=== PATIENT | female | born 1955 | race Caucasian/White ===

== ENCOUNTER → 2017-05-23 | Outpatient (CLI) | payer BC ==
[~2017-05-23] MED LIST: BIOT1CAP PO; CALC600T37 PO; CALCTAB5 PO; DEXL60CA4 PO; ETOD400T PO; FISHOIL PO; GABA300C19 PO; GLYC1TAB19 PO; HYDR-4330 PO; LISI-729 PO; META1TAB22 PO; OMEG10007 PO; ROSU5TAB PO
[2017-05-23 16:02] LABS: BLOOD UREA NITROGEN 17 mg/dl (7-18); BUN/CREATININE RATIO 18.1 (10-20); CALCIUM 10.1 mg/dl (8.5-10.1); CARBON DIOXIDE 29 mmol/L (21-32); CHLORIDE 105 mmol/L (98-107); CREATININE 0.95 mg/dl (0.60-1.20); GLUCOSE 90 mg/dl (70-99); POTASSIUM 4.1 mmol/L (3.5-5.1); SODIUM 140 mmol/L (136-145)
== END | disposition home or self-care (01) ==
LOC: C.CPL 11:30
PROVIDERS: ATTEND Orthopaedic Surgery
DX: R20.0 Anesthesia of skin (principal); Z01.810 Encounter for preprocedural cardiovascular examination

== ENCOUNTER → 2017-05-23 | Day surgery (SDC) | payer BC ==
[2017-04-25 14:45] VITALS: Ht 169.5 cm; Wt 90.9 kg
[~2017-05-23] VITALS: Ht 169.5 cm; Wt 90.9 kg
[~2017-05-23] MED LIST changes: +IOPAMIDOL INJ 61% 15 ML VIAL ONE; +LIDOCAINE HCL 1% MPF 5 ML VIAL ONE; +SODIUM CHLORIDE 0.9% INJ 10 ML VIAL ONE
--- NOTE | 2017-05-23 13:23 | History & Physical Bridge - [place] ---
H&P Re-Evaluation Bridge Note: I have examined the patient, reviewed the History & Physical and in the interval since the performance of the History & Physical I have noted the following changes of clinical significance: No changes noted
[2017-05-23 13:56] VITALS: BP 117/80; PULSE 69; TEMP 36.8; O2SAT 96
--- NOTE | 2017-05-23 13:56 | Discharge Instructions ---
Discharge Instructions Date of Service May 23, 2017. Visit Reason for Visit: Lumbar Radiculopathy Discharge Discharge Diagnosis / Problem: left leg pain Discharge Goals Goal(s): Decrease discomfort, Improve function Medications Stopped Medications Name(s): ETODOLAC STOPPED ON SATURDAY Activity Recommendations Activity Limitations: resume your previous activity Anesthesia . Post Anesthesia Instructions: If you have had General Anesthesia or IV Sedation: * Do not drive today. * Resume driving when surgeon permits. * Do not make important decisions or sign legal documents today. * Call surgeon for: 1. Temperature elevations greater than 101 degrees F. 2. Uncontrollable pain. 3. Excessive bleeding. 4. Persistent nausea and vomiting. 5. Medication intolerance (nausea, vomiting or rash). * For nausea and vomiting use only clear liquids such as: tea, soda, bouillon until nausea subsides, then gradually increase diet as tolerated. * If you have any concerns or questions, call your surgeon's office. If physician is unavailable and it is an emergency, call 911 or go to the nearest emergency room. . Diet Recommendations Recommended Home Diet: no limitations Procedures Procedures Performed: Lumbar Epidural Steroid Injection Pending Studies Studies pending at discharge: no Medical Emergencies . Who to Call and When: Medical Emergencies: If at any time you feel your situation is an emergency, please call 911 immediately. . Non-Emergent Contact Non-Emergency issues call your: Specialist . . "Provider Documentation" section prepared by Avery Orellana. .
--- NOTE | 2017-05-23 14:09 | OPERATIVE REPORT ---
DATE OF OPERATION: 05/23/2017 PREOPERATIVE DIAGNOSIS: Left L4-L5 stenosis, multifactorial in cause with a left L5 radiculopathy. POSTOPERATIVE DIAGNOSIS: Same. PROCEDURE: Left paramedian L5-S1 intralaminar epidural steroid injection under fluoroscopic guidance. INDICATIONS: The patient is a 61-year-old white female who has a significant foraminal stenosis at L4-L5, who wants to try conservative care rather than a decompression surgery first. She presents today for an epidural injection to provide her with relief of radicular pain. PHYSICAL EXAMINATION: Pleasant female seated comfortably. She has no tenderness to palpation of her lumbar paraspinal muscles. Sciatic notch sensitivity was absent. Negative seated straight leg raises. Normal motor and sensory examination of her lower extremities. CONSENT: Verbal and written consent was obtained from the patient. Risks and benefits were reviewed. Risks include, but are not limited to an epidural abscess, epidural hematoma, allergic reaction and dural puncture. The patient wishes to proceed. DESCRIPTION OF PROCEDURE: The patient was taken back to the special procedures room of the [facility], where she was maintained in a prone position. Backside was cleansed with Betadine x3 and a dry sterile dressing was applied. Fluoroscope was used to identify the L5-S1 intralaminar space and overlying skin was anesthetized with 4 mL of lidocaine 1% with a 25-gauge 1-1/2 inch needle. A 22-gauge 3-1/2 inch Tuohy needle was then directed down towards the intralaminar space. It was advanced under lateral fluoroscopic guidance. Loss of resistance was noted at a depth of 7 cm. Isovue-300 contrast 1 mL was injected in which demonstrated epidural uptake pattern, which was confirmed with a lateral view. She then underwent injection after negative aspiration of 40 mg of Depo-Medrol and 4 mL of preservative free sodium chloride. Injection was well tolerated and reproduced a familiar transient radicular sensation down the left leg. DISPOSITION: 1. The patient was taken out into the discharge recovery area, where she will be discharged home once discharge criteria have been met. 2. Follow up in the [facility] office in 2-4 weeks. I attest to the content of the Intraoperative Record and any orders documented therein. Any exception s are noted below.
== END | disposition home or self-care (01) ==
LOC: X.SURG 12:06
PROVIDERS: ATTEND Physical Medicine & Rehabilitation
DX: M48.06 Spinal stenosis, lumbar region (principal); Z87.891 Personal history of nicotine dependence

== ENCOUNTER 2017-07-11 06:06 | Inpatient (IN) | payer BC ==
[2017-06-04 14:14] VITALS: BMI 36.0
--- NOTE | 2017-06-04 14:57 | PAT Medication Instructions ---
Service Date Jun 04, 2017. Current Home Medication List Biotin (Ari Biotin), 10 MG PO QAM Calcium (Calcium), 600 MG PO QAM Dexlansoprazole (Dexilant), 60 MG PO QAM Etodolac (Etodolac), 400 MG PO BID Fish Oil ([place]-3), 1 CAP PO BID Gabapentin (Neurontin), 300 MG PO QID Glycopyrrolate (Glycopyrrolate), 1 MG PO BID PRN for SEVERE SWEATING Hydrocodone-Acetaminophen (Lortab 5-325 mg), 1 TAB PO DAILY PRN for Pain Lisinopril (Prinivil), 5 MG PO QAM Metaxalone (Skelaxin), 800 MG PO QID Rosuvastatin Calcium (Crestor), 5 MG PO QPM Medication Instructions For Your Scheduled Surgery - Check with surgeon for instructions: Etodolac (Etodolac), 400 MG PO BID - Hold the following medications 2 weeks prior to surgery: Fish Oil ([place]-3), 1 CAP PO BID - Hold the following medications the morning of surgery: Metaxalone (Skelaxin), 800 MG PO QID Lisinopril (Prinivil), 5 MG PO QAM Glycopyrrolate (Glycopyrrolate), 1 MG PO BID PRN for SEVERE SWEATING Biotin (Ari Biotin), 10 MG PO QAM Calcium (Calcium), 600 MG PO QAM - Take the following medications the morning of surgery with a sip of water: Hydrocodone-Acetaminophen (Lortab 5-325 mg), 1 TAB PO DAILY PRN for Pain (okay to take up to 4 hours prior to surgery if needed) Gabapentin (Neurontin), 300 MG PO QID Dexlansoprazole (Dexilant), 60 MG PO QAM - Take the following medications as scheduled the night before surgery: Rosuvastatin Calcium (Crestor), 5 MG PO QPM Metaxalone (Skelaxin), 800 MG PO QID Hydrocodone-Acetaminophen (Lortab 5-325 mg), 1 TAB PO DAILY PRN for Pain (if needed) Glycopyrrolate (Glycopyrrolate), 1 MG PO BID PRN for SEVERE SWEATING (if needed) Gabapentin (Neurontin), 300 MG PO QID If you have any questions please call us at [phone] or [phone] or [phone]
[2017-06-04 15:21] LABS: BASO % 0.5 %; BASO ABS # 0.04 K/uL (0-0.2); COMPLETE YES; EOS % 1.7 %; HEMATOCRIT 39.9 % (37-47); IG% 0.1 %; LYMPH % 29.8 %; LYMPH ABS # 2.22 K/uL (1.2-3.4); MEAN CELL VOLUME 90.1 fL (80-100); MEAN CORPUSCULAR HGB CONC 33.3 g/dl (32-36); MEAN PLATELET VOLUME 9.7 fL (7.4-10.4); MONO % 6.2 %; NEUT % 61.7 %; PLATELET COUNT 266 K/uL (130-400); RED BLOOD COUNT 4.43 M/uL (4.2-5.4); WHITE BLOOD COUNT 7.46 K/uL (4.8-10.8)
[2017-06-04 15:24] LABS: URINE APPEARANCE CLEAR (CLEAR); URINE BILIRUBIN NEG (NEG); URINE COLOR YELLOW; URINE NITRITE NEG (NEG); URINE SPECIFIC GRAVITY 1.012 (1.000-1.030); UROBILINOGEN NEG (NEG)
[2017-06-04 15:37] LABS: PROTHROMBIN TIME (PATIENT) 10.7 SECONDS (9.0-12.0)
[2017-06-04 15:38] LABS: MANUAL MICROSCOPIC REQUIRED? NO
[2017-06-04 15:41] LABS: REVIEW REQ? NO
--- NOTE | 2017-07-10 19:20 | HISTORY & PHYSICAL EXAMINATION ---
DATE OF ADMISSION: 07/11/2017 CHIEF COMPLAINT: Chronic left knee pain. HISTORY OF PRESENT ILLNESS: This is a 61-year-old female patient of Dr. Shrestha'natalie complaining of chronic left knee pain, longstanding, now progressively getting worse. The patient has been diagnosed with end-stage osteoarthritis per clinical and radiographic exams. She has failed conservative treatment including narcotic medications, anti-inflammatories and intraarticular injections. The patient has also used a sleeve. She has failed conservative treatment and she wishes to proceed with a left total knee arthroplasty. PAST MEDICAL HISTORY: Hypertension, hypercholesterolemia, osteoarthritis, spine problems, sciatica, acid reflux, obesity, kidney stones. SOCIAL HISTORY: Nonsmoker, nondrinker. PAST SURGICAL HISTORY: She had a tonsillectomy, appendectomy, toe surgery on both sides, tubal ligation and an ulnar nerve release. FAMILY HISTORY: Noncontributory. REVIEW OF SYSTEMS: The patient complains of chronic left knee pain, otherwise denies any shortness of breath, chest pain, nausea, vomiting or any other joint complaints. MEDICATIONS: 1. Lisinopril 5 mg daily. 2. Dexilant 60 mg delayed release 1 capsule p.o. every 8 weeks. 3. Neurontin 300 mg 4 times daily. 4. Metaxalone 800 mg 4 times daily. 5. Etodolac 400 mg as needed. 6. Calcium daily. 7. Glycopyrrolate daily. 8. Biotin daily. 9. [place] as needed. ALLERGIES: CODEINE AND MELOXICAM. PHYSICAL EXAMINATION: GENERAL: Well-developed, well-nourished 61-year-old female in no acute distress. She is alert and oriented x3 and pleasant. HEENT: Normocephalic, atraumatic. Extraocular motions are intact. Pupils are equal and reactive to light. HEART: Regular rate and rhythm. No murmurs appreciated. LUNGS: Clear. ABDOMEN: Soft and nontender, bowel sounds are present. EXTREMITIES: Left knee reveals a limited range of motion of 0-130 degrees with crepitation. She has a mild effusion with neutral alignment. She has 4/5 strength. NEUROLOGIC: Neurovascularly, she is intact in her left lower extremity. DIAGNOSES: Left knee end-stage osteoarthritis, hypercholesterolemia, hypertension, osteoarthritis, spine problems in the lumbar area, sciatica, acid reflux, obesity, kidney stones. PLAN: The patient was advised of her diagnosis. Indications, risks, benefits, postop course have all been reviewed. The patient wishes to proceed with left total knee arthroplasty. Necessary consent forms, preoperative testing and clearances will be obtained. DONNA
[2017-07-11] VITALS (7 sets, daily range): BP systolic 106–109; BP diastolic 70–82; PULSE 68–82; TEMP 36.6–36.8; O2SAT 95–98; Ht 170.2 cm; Wt 105.3 kg
[~2017-07-11] VITALS: Ht 170.2 cm; Wt 105.3 kg
[~2017-07-11 06:06] MED LIST changes: -CALCTAB5 PO; -FISHOIL PO; +GABA-1218 PO; -GABA300C19 PO; -IOPAMIDOL INJ 61% 15 ML VIAL ONE; +LACTATED RINGER'S 1000ML 500 ML IV ONE; -LIDOCAINE HCL 1% MPF 5 ML VIAL ONE; +ROPIVACAINE 5MG/ML 30 ML 150 MG, BUPIVACAINE 0.5% MPF INJ 30 ML, EpINEphrine HCL INJ 0.... INFIL SCH; -SODIUM CHLORIDE 0.9% INJ 10 ML VIAL ONE
[2017-07-11] MEDS ORDERED: BUPIVACAINE 0.5 % 5 MG/1 ML PF 10ML VIAL ONE (06:19)
[2017-07-11] MEDS ORDERED: AMT50 PO (06:32)
[2017-07-11] MEDS: DEXAMETHASONE 4 MG TAB PO SCH ×2 (06:55→12:14)
[2017-07-11] MEDS: GABAPENTIN 300 MG CAP PO SCH ×4 (06:55→20:57)
[2017-07-11] MEDS: METOCLOPRAMIDE HCL 10 MG TAB PO SCH ×2 (06:55→12:15)
[2017-07-11] MEDS: FAMOTIDINE 20 MG TAB PO SCH ×2 (06:56→12:14)
[2017-07-11] MEDS: CeleBREX 200 MG CAP PO SCH ×2 (06:56→12:14)
[2017-07-11] MEDS: ACETAMINOPHEN 500 MG TAB PO SCH ×4 (06:56→21:43)
[2017-07-11] MEDS ORDERED: FENTANYL CITRATE INJ 50 MCG/1 ML 2 ML VIAL IV PRN (07:00)
[2017-07-11] MEDS ORDERED: ATROPINE SULFATE 0.1 MG/ML 5ML SYR IV PRN (07:00)
[2017-07-11] MEDS ORDERED: EpHEDrine SULFATE INJ 50 MG/ML AMP IV PRN (07:00)
[2017-07-11] MEDS ORDERED: ONDANSETRON INJ 2 MG/ML 2 ML VIAL IV PRN (07:00)
[2017-07-11] MEDS: LACTATED RINGER'S 1000ML IV SCH ×2 (07:05→12:14)
[2017-07-11] MEDS: LACTATED RINGER'S 1000ML 1,000 ML IV SCH ×2 (07:05→12:14)
[2017-07-11] MEDS ORDERED: MIDAZOLAM HCL 1 MG/ML 2ML VIAL ONE ×2 (07:45→08:24)
[2017-07-11] MEDS: TRANEXAMIC ACID INJ 1,000 MG in SYRINGE 0 ML IV SCH ×2 (08:06→10:34)
[2017-07-11] MEDS ORDERED: ORTHO JOINT ANESTHETIC ONE (08:43)
[2017-07-11] MEDS ORDERED: POVIDONE-IODINE OP SOLN 30 ML BTL ONE (08:43)
[2017-07-11] MEDS ORDERED: BACITRACIN 50000 UNIT VIAL ONE (08:44)
[2017-07-11] MEDS: CEFAZOLIN 2000MG IV PUSH 10 ML IV SCH ×3 (09:13→12:14)
--- NOTE | 2017-07-11 10:48 | [facility] Post Operative Brief Note ---
Immediate Operative Summary Operative Date Jul 11, 2017. Pre-Operative Diagnosis Left knee end-stage osteoarthritis Post-Operative Diagnosis Left knee end-stage osteoarthritis Procedure(s) Performed Left Total Knee Arthroplasty Surgeon Dr. Ronnie Shrestha Dispute Specialist Surgeon(s) Azam Barcenas Estimated Blood Loss 5ml Findings tricompartmental djd oa ,grade 4 in 3 compartment patellofemoral bone loss Specimens Left Knee Bone and Tissue Drains 2 hemovac Anesthesia spinal sedation adductor block and orthomix Complication(s) None Disposition Recovery Room / PACU
[2017-07-11] MEDS ORDERED: ONDANSETRON INJ 2 MG/ML 2 ML VIAL ONE (11:03)
[2017-07-11] MEDS ORDERED: LIDOCAINE HCL 2% 2 ML VIAL (20MG/ML) ONE (11:03)
[2017-07-11] MEDS ORDERED: DEXAMETHASONE SOD INJ 4 MG/ML VIAL ONE (11:03)
[2017-07-11] MEDS ORDERED: PROPOFOL IV EMULSION 10 MG/ML 20 ML VIAL IV ONE (11:03)
[2017-07-11] MEDS ORDERED: METOCLOPRAMIDE HCL INJ 5 MG/ML 2 ML VIAL IV PRN (11:15)
[2017-07-11] MEDS ORDERED: CEFAZOLIN IV 2,000 MG in DEXTROSE 5% 50ML 50 ML IV SCH (11:15)
[2017-07-11] MEDS ORDERED: BISACODYL 10 MG SUPP PR PRN (11:15)
[2017-07-11] MEDS ORDERED: MAGNESIUM HYDROXIDE SUSP 30 ML UDC PO PRN (11:15)
[2017-07-11] MEDS ORDERED: MoRPHine SULFATE 2 MG/ML CARP IV PRN (11:15)
[2017-07-11] MEDS ORDERED: GLYCOPYRROLATE 1 MG TAB PO PRN (11:15)
[2017-07-11] MEDS ORDERED: ZOLPIDEM TARTRATE 5 MG TAB PO PRN (11:15)
[2017-07-11] MEDS ORDERED: SOD PHOSPHATE/SOD BIPHOSPHATE ENEMA 132 ML BTL PR PRN (11:15)
[2017-07-11] MEDS ORDERED: MoRPHine SULFATE 4 MG/ML 1 ML CARP\\VIAL IV PRN (12:00)
--- NOTE | 2017-07-11 12:26 | Anesthesiology Progress Note ---
Anesthesia Post Op Note Date & Time Jul 11, 2017 at 12:26 Vital Signs Pain Intensity: 0 Vital Signs Past 12 Hours Date Time Temp Pulse Resp B/P (MAP) Pulse Ox O2 Delivery O2 Flow Rate FiO2 07/11/17 12:05 69 14 104/65 97 Nasal Cannula 2 07/11/17 11:55 36.3 71 14 102/68 96 Nasal Cannula 2 07/11/17 11:45 75 17 113/63 97 Nasal Cannula 2 07/11/17 11:35 72 15 93/64 97 Nasal Cannula 2 07/11/17 11:25 73 13 113/70 97 Nasal Cannula 2 07/11/17 11:17 36.0 77 18 114/63 95 Nasal Cannula 2 07/11/17 08:50 70 16 126/99 (108) 99 Oxymask 10 07/11/17 08:40 74 16 111/72 (85) 99 Oxymask 10 07/11/17 08:30 71 16 123/73 (90) 100 Oxymask 10 07/11/17 08:20 72 16 111/73 (86) 99 Oxymask 10 07/11/17 06:25 36.8 82 18 108/81 97 Room Air Notes Mental Status: alert / awake / arousable, participated in evaluation Pt Amnestic to Procedure: Yes Nausea / Vomiting: adequately controlled Pain: adequately controlled Airway Patency, RR, SpO2: stable & adequate BP & HR: stable & adequate Hydration State: stable & adequate Neuraxial Anesthesia: was administered, sensory block is resolving Anesthetic Complications: no major complications apparent
--- NOTE | 2017-07-11 12:37 | DIAGNOSTIC IMAGING REPORT ---
L KNEE 1 OR 2 VIEWS ROUTINE CLINICAL HISTORY: AP/LATERAL IN PACU LEFT KNEE pain COMPARISON: None. DISCUSSION: Total left knee prosthetic place in good position. Good contact between prosthetic and underlying bone. Surgical drains in position. Expected soft tissue postoperative change. IMPRESSION: Anatomic alignment status post total left knee arthroplasty The above report was generated using voice recognition software. It may contain grammatical, syntax or spelling errors. Electronically signed by: Azam Alonso M.D. 07/11/2017 12:36 PM Dictated Date/Time: 07/11/2017 12:35 PM
--- NOTE | 2017-07-11 14:13 | History and Physical ---
History & Physical Date & Time of Service: Jul 11, 2017 at 13:38 Chief Complaint: Left Knee Degenerative Joint Disease Primary Care Physician: Lit Bettencourt M.D. History of Present Illness Source: patient, clinic records, hospital records This is a 61yo F with a PMH of HTN, HLD, GERD, lumbar disc degeneration and OA who is POD#0 s/p Left total knee arthroplasty by Dr. Shrestha. Patient with longstanding left knee pain that has progressively gotten worse and has failed conservative treatment measures. Patient is doing well post-operatively. Denies any knee pain. Denies any lightheadedness, headache, chest pain, palpitations, SOB, abdominal pain, nausea, vomiting, calf pain, LE swelling. Family History Hypertension FATHER Social History Smoking Status: Former Smoker Alcohol Use: occasionally Allergies Coded Allergies: Nickel (Verified Allergy, Unknown, ALLERGY TEST WAS POSITIVE, 07/11/17) Codeine (Verified Adverse Reaction, Intermediate, HALLUCINATIONS, 07/11/17) Meloxicam (Verified Adverse Reaction, Unknown, INCREASED BP, 07/11/17) Home Medications Scheduled Amitriptyline Hcl (Elavil), 50 MG PO HS Biotin (Ari Biotin), 10 MG PO QAM Calcium (Calcium), 600 MG PO QAM Dexlansoprazole (Dexilant), 60 MG PO QAM Etodolac (Etodolac), 400 MG PO BID Fish Oil ([place]-3), 1 CAP PO BID Gabapentin (Neurontin), 300 MG PO QID Lisinopril (Prinivil), 5 MG PO QAM Metaxalone (Skelaxin), 800 MG PO QID Rosuvastatin Calcium (Crestor), 5 MG PO QPM Scheduled PRN Glycopyrrolate (Glycopyrrolate), 1 MG PO BID PRN for SEVERE SWEATING Hydrocodone-Acetaminophen (Lortab 5-325 mg), 1 TAB PO DAILY PRN for Pain Review of Systems Ten systems reviewed and negative except as noted in the HPI. Physical Exam Vital Signs Date Time Temp Pulse Resp B/P (MAP) Pulse Ox O2 Delivery O2 Flow Rate FiO2 07/11/17 12:59 36.7 70 16 106/74 (85) 98 Nasal Cannula 2.0 07/11/17 12:30 36.6 71 16 106/82 (90) 96 Nasal Cannula 2.0 07/11/17 12:05 69 14 104/65 97 Nasal Cannula 2 07/11/17 11:55 36.3 71 14 102/68 96 Nasal Cannula 2 07/11/17 11:45 75 17 113/63 97 Nasal Cannula 2 07/11/17 11:35 72 15 93/64 97 Nasal Cannula 2 07/11/17 11:25 73 13 113/70 97 Nasal Cannula 2 07/11/17 11:17 36.0 77 18 114/63 95 Nasal Cannula 2 07/11/17 08:50 70 16 126/99 (108) 99 Oxymask 10 07/11/17 08:40 74 16 111/72 (85) 99 Oxymask 10 07/11/17 08:30 71 16 123/73 (90) 100 Oxymask 10 07/11/17 08:20 72 16 111/73 (86) 99 Oxymask 10 07/11/17 06:25 36.8 82 18 108/81 97 Room Air General Appearance: no apparent distress, + obese Head: normocephalic, atraumatic Eyes: normal inspection, PERRL, sclerae normal (conjunctiva normal ) ENT: hearing grossly normal, pharynx normal Neck: supple, thyroid normal, no JVD, trachea midline Respiratory/Chest: chest non-tender, lungs clear, normal breath sounds, no respiratory distress, no accessory muscle use Cardiovascular: regular rate, rhythm, no edema, no murmur, normal peripheral pulses Abdomen/GI: normal bowel sounds, non tender, soft, no organomegaly Back: normal inspection Extremities/Musculoskelatal: no calf tenderness, no pedal edema, + pertinent finding (L knee with bandage in place. Clean/dry/intact. Ice on top. Drain visualized with sanguinous fluid. SCDs in place.) Neurologic/Psych: no motor/sensory deficits, alert, normal mood/affect, oriented x 3 Skin: normal color, warm/dry, no rash Diagnostics Laboratory Results Item Value Date Time Hemoglobin 13.3 g/dL 06/04/17 1505 White Blood Count 7.46 K/uL 06/04/17 1505 Platelet Count 266 K/uL 06/04/17 1505 Diagnostic Radiology L knee XR: IMPRESSION: Anatomic alignment status post total left knee arthroplasty Impression Assessment and Plan This is a 61yo F with a PMH of HTN, HLD, GERD, lumbar disc degeneration and OA who is POD#0 s/p Left total knee arthroplasty by Dr. Shrestha. S/p L total knee arthroplasty: -POD#[address] Shrestha. -Pt is doing well post-operatively -Fish oil and NSAID held post-operatively for bleeding risk -Per ortho for pain control, wound care, anticoagulation and activities -Monitor H&H, continue incentive spirometry, PT/OT when appropriate HTN: -Normotensive -Continue home dose lisinopril -Monitor Lumbar disc disease: -Continue metaxalone HLD: -Cont Crestor DVT Ppx: Per ortho Code status: FULL PCP: Rut Dispo: Per ortho Patient seen in collaboration with Dr. Lake. Please see addendum. Level of Care Med/Surg Advanced Directives Existing Living Will: Yes Existing Power of Set Illustrator: Yes Resuscitation Status FULL RESUSCITATION VTE Prophylaxis VTE Risk Assessment Done? Y/N: Yes Risk Level: Moderate
--- NOTE | 2017-07-11 14:26 | Medical Consult ---
Consultation Date of Consultation: Jul 11, 2017. Attending Physician: Ronnie Shrestha M.D. Reason for Consultation: Post-op medical management History of Present Illness This is a 61yo F with a PMH of HTN, HLD, GERD, lumbar disc degeneration and OA who is POD#0 s/p Left total knee arthroplasty by Dr. Shrestha. Patient with longstanding left knee pain that has progressively gotten worse and has failed conservative treatment measures. Patient is doing well post-operatively. Denies any knee pain. Denies any lightheadedness, headache, chest pain, palpitations, SOB, abdominal pain, nausea, vomiting, calf pain, LE swelling. Past Medical/Surgical History Medical Problems: (1) GERD (gastroesophageal reflux disease) Status: Chronic (2) HLD (hyperlipidemia) Status: Chronic (3) HTN (hypertension) Status: Chronic (4) Left knee DJD Status: Chronic (5) Lumbar degenerative disc disease Status: Chronic Family History Hypertension FATHER Social History Smoking Status: Former Smoker Alcohol Use: occasionally Allergies Coded Allergies: Nickel (Verified Allergy, Unknown, ALLERGY TEST WAS POSITIVE, 07/11/17) Codeine (Verified Adverse Reaction, Intermediate, HALLUCINATIONS, 07/11/17) Meloxicam (Verified Adverse Reaction, Unknown, INCREASED BP, 07/11/17) Home Medications Home Meds and Scripts Medications Dose Route/Sig Max Daily Dose Days Date Category Dose Instructions Elavil (Amitriptyline HCl) 50 Mg Tab 50 Mg PO HS 07/11/17 Reported Calcium 600 Mg Tab 600 Mg PO QAM 06/04/17 Reported [place]-3 (Fish Oil) 1 Ea Cap 1 Cap PO BID 06/04/17 Reported Ari Biotin (Biotin) 10 Mg Cap 10 Mg PO QAM 04/25/17 Reported Glycopyrrolate 1 Mg Tab 1 Mg PO BID PRN 04/25/17 Reported Lortab 5-325 mg (Hydrocodone-Acetaminophen) 1 Tab Tab 1 Tab PO DAILY PRN 04/25/17 Reported Etodolac 400 Mg Tab 400 Mg PO BID 04/25/17 Reported Skelaxin (Metaxalone) 800 Mg Tab 800 Mg PO QID 04/25/17 Reported Prinivil (Lisinopril) 5 Mg Tab 5 Mg PO QAM 04/25/17 Reported Dexilant (Dexlansoprazole) 60 Mg Cap 60 Mg PO QAM 04/25/17 Reported Crestor (Rosuvastatin Calcium) 5 Mg Tab 5 Mg PO QPM 10/12/12 Reported Neurontin (Gabapentin) 300 Mg Cap 300 Mg PO QID 10/12/[address] OF 400MG TID --- UNTIL CURRENT PRESCRIPTION RUNS OUT Current Inpatient Medications Current Inpatient Medications Medications (Trade) Dose Ordered Sig/Aaron Route Start Time Stop Time Status Last Admin Dose Admin Lactated Ringer's 1,000 ml @ 60 mls/hr [id number] IV 07/11/17 06:00 07/11/17 22:39 Cefazolin Sodium 10 ml @ 2.5 mls/min PREOP IV 07/11/17 06:00 07/11/17 18:00 07/11/17 09:40 2.5 MLS/MIN Acetaminophen (Tylenol Tab) 1,000 mg PREOP PO 07/11/17 06:00 07/11/17 18:00 07/11/17 06:56 1,000 MG Celecoxib (CeleBREX CAP) 200 mg PREOP PO 07/11/17 06:00 07/11/17 18:00 07/11/17 06:56 200 MG Dexamethasone (Decadron Tab) 8 mg PREOP PO 07/11/17 06:00 07/11/17 18:00 07/11/17 06:55 8 MG Famotidine (Pepcid Tab) 20 mg PREOP PO 07/11/17 06:00 07/11/17 18:00 07/11/17 06:56 20 MG Gabapentin (Neurontin Cap) 600 mg PREOP PO 07/11/17 06:00 07/11/17 18:00 07/11/17 06:55 600 MG Metoclopramide HCl (Reglan Tab) 10 mg PREOP PO 07/11/17 06:00 07/11/17 18:00 07/11/17 06:55 10 MG Lactated Ringer's 1,000 ml @ 15 mls/hr Q24H IV 07/11/17 06:00 07/12/17 05:59 07/11/17 07:05 15 MLS/HR Amitriptyline HCl (Elavil Tab) 50 mg HS PO 07/11/17 21:00 08/10/17 20:59 Gabapentin (Neurontin Cap) 300 mg QID PO 07/11/17 17:00 08/10/17 16:59 Glycopyrrolate (Robinul Tab) 1 mg BID PRN PO 07/11/17 11:15 08/10/17 11:14 Lisinopril (Zestril Tab) 5 mg QAM PO 07/12/17 09:00 08/11/17 08:59 Metaxalone (Skelaxin Tab) 800 mg QID PO 07/11/17 17:00 08/10/17 16:59 Rosuvastatin Calcium (Crestor Tab) 5 mg QPM PO 07/11/17 21:00 08/10/17 20:59 Calcium/Vitamin D (Caltrate Plus Tab) 1 tab QAM PO 07/12/17 09:00 08/11/17 08:59 Potassium Chloride/Dextrose/ Sod Cl 1,000 ml @ 100 mls/hr Q10H IV 07/11/17 13:45 07/12/17 13:44 Oxycodone HCl (Roxicodone Immediate Rel Tab) 1 TABLET FOR PAIN RATING... Q4H PRN PO 07/11/17 11:15 07/25/17 11:14 Morphine Sulfate (MoRPHine SULFATE INJ) 2 mg Q2H PRN IV 07/11/17 11:15 07/25/17 11:14 Acetaminophen (Tylenol Tab) 1,000 mg Q8 PO 07/11/17 14:00 08/10/17 13:59 Magnesium Hydroxide (Milk Of Magnesia Susp) 30 ml Q6H PRN PO 07/11/17 11:15 08/10/17 11:14 Bisacodyl (Dulcolax Supp) 10 mg DAILY PRN RI 07/11/17 11:15 08/10/17 11:14 Sodium Biphosphate/ Sodium Phosphate (Fleet Enema) 132 ml DAILY PRN RI 07/11/17 11:15 08/10/17 11:14 Docusate Sodium (coLACE CAP) 100 mg BID PO 07/11/17 21:00 08/10/17 20:59 Diphenhydramine HCl (Benadryl Cap) 25 mg Q8H PRN PO 07/11/17 11:15 08/10/17 11:14 Zolpidem Tartrate (Ambien Tab) 5 mg HSZ PRN PO 07/11/17 11:15 08/10/17 11:14 Multivitamins (Multivitamin Tab) 1 tab QAM PO 07/12/17 09:00 08/11/17 08:59 Metoclopramide HCl (Reglan Inj) 10 mg Q6H PRN IV 07/11/17 11:15 08/10/17 11:14 Pantoprazole Sodium (Protonix Tab) 40 mg QAM PO 07/12/17 09:00 08/11/17 08:59 Tramadol HCl (Ultram Tab) 1 tablet for pain rating... Q4H PRN PO 07/11/17 11:15 08/10/17 11:14 Aspirin (Ecotrin Tab) 81 mg BID PO 07/11/17 21:00 08/10/17 20:59 Morphine Sulfate (MoRPHine SULFATE INJ) 4 mg Q2H PRN IV 07/11/17 12:00 07/25/17 11:59 Cefazolin Sodium 2000 mg/Syringe 10 ml @ 2.5 mls/min Q8H IV 07/11/17 18:00 07/12/17 02:03 Review of Systems Ten systems reviewed and negative except as noted in the HPI. Physical Exam Date Time Temp Pulse Resp B/P (MAP) Pulse Ox O2 Delivery O2 Flow Rate FiO2 07/11/17 13:40 74 16 109/75 (86) 98 Nasal Cannula 2.0 07/11/17 12:59 36.7 70 16 106/74 (85) 98 Nasal Cannula 2.0 07/11/17 12:30 36.6 71 16 106/82 (90) 96 Nasal Cannula 2.0 07/11/17 12:30 Room Air 2.0 07/11/17 12:05 69 14 104/65 97 Nasal Cannula 2 07/11/17 11:55 36.3 71 14 102/68 96 Nasal Cannula 2 07/11/17 11:45 75 17 113/63 97 Nasal Cannula 2 07/11/17 11:35 72 15 93/64 97 Nasal Cannula 2 07/11/17 11:25 73 13 113/70 97 Nasal Cannula 2 07/11/17 11:17 36.0 77 18 114/63 95 Nasal Cannula 2 07/11/17 08:50 70 16 126/99 (108) 99 Oxymask 10 07/11/17 08:40 74 16 111/72 (85) 99 Oxymask 10 07/11/17 08:30 71 16 123/73 (90) 100 Oxymask 10 07/11/17 08:20 72 16 111/73 (86) 99 Oxymask 10 07/11/17 06:25 36.8 82 18 108/81 97 Room Air General Appearance: no apparent distress, + obese Head: normocephalic, atraumatic Eyes: normal inspection, PERRL, sclerae normal (conjunctiva normal ) ENT: hearing grossly normal, pharynx normal Neck: supple, thyroid normal, no JVD, trachea midline Respiratory/Chest: chest non-tender, lungs clear, normal breath sounds, no respiratory distress, no accessory muscle use Cardiovascular: regular rate, rhythm, no edema, no murmur, normal peripheral pulses Abdomen/GI: normal bowel sounds, non tender, soft, no organomegaly Back: normal inspection Extremities/Musculoskelatal: no calf tenderness, no pedal edema, + pertinent finding (L knee with bandage in place. Clean/dry/intact. Ice on top. Drain visualized with sanguinous fluid. SCDs in place.) Neurologic/Psych: no motor/sensory deficits, alert, normal mood/affect, oriented x 3 Skin: normal color, warm/dry, no rash Laboratory Results Pre-op labs: Item Value Date Time Hemoglobin 13.3 g/dL 06/04/17 1505 White Blood Count 7.46 K/uL 06/04/17 1505 Platelet Count 266 K/uL 06/04/17 1505 Assessment & Plan This is a 61yo F with a PMH of HTN, HLD, GERD, lumbar disc degeneration and OA who is POD#0 s/p Left total knee arthroplasty by Dr. Shrestha. S/p L total knee arthroplasty: -POD#[address] Shrestha. -Pt is doing well post-operatively -Fish oil and NSAID held post-operatively for bleeding risk -Per ortho for pain control, wound care, anticoagulation and activities -Monitor H&H, continue incentive spirometry, PT/OT when appropriate HTN: -Normotensive -Continue home dose lisinopril -Monitor Lumbar disc disease: -Continue metaxalone HLD: -Cont Crestor DVT Ppx: Per ortho Code status: FULL PCP: Rut Dispo: Per ortho Patient seen in collaboration with Dr. Lake. Please see addendum. ADDENDUM: Saw/examined the patient in room 318 Doing well, no problems/issues to note L knee was operated on earlier today, but no pain as of yet Ate lunch with no n/v/d - good appetite, no BM as of yet Plan: continue home blood pressure medications check labs in AM ASA 81mg BID for DVT ppx as per ortho
[2017-07-11] MEDS: D5W AND 1/2NSS + 20MEQ KCL 1,000 ML IV SCH (15:48)
[2017-07-11] MEDS: OXYCODONE HCL IR 5 MG TAB (IMMEDIATE RELEASE) PO PRN ×2 (17:17→20:55)
[2017-07-11] MEDS: METAXALONE 800 MG TAB PO SCH ×2 (17:18→20:57)
[2017-07-11] MEDS: CEFAZOLIN IV 2,000 MG in SYRINGE 0 ML IV SCH (18:45)
[2017-07-11] MEDS: ASPIRIN 81 MG ECTAB PO SCH (20:54)
[2017-07-11] MEDS: DOCUSATE SODIUM 100 MG CAP PO SCH (20:54)
[2017-07-11] MEDS: ROSUVASTATIN CALCIUM 10 MG TAB PO SCH (20:55)
[2017-07-11] MEDS: AMITRIPTYLINE HCL 50 MG TAB PO SCH (20:55)
--- NOTE | 2017-07-11 21:17 | OPERATIVE REPORT ---
DATE OF OPERATION: 07/11/2017 INDICATION FOR PROCEDURE: The patient is a 61-year-old female with chronic bilateral knee pain. She has stage bilateral knee osteoarthritis, presents for treatment of her left knee. Regards to her left knee, she has [id number] patellofemoral joint. She has a lateral-aligned patella. She also has medial compartment OA, tricompartmental osteophytes, close to but not bone on bone to medial compartment. PREOPERATIVE DIAGNOSIS: End-stage osteoarthritis, left knee. POSTOPERATIVE DIAGNOSIS: Same. PROCEDURE: Left total knee arthroplasty. SURGEON: Dr. Shrestha. EXECUTIVE VICE PRESIDENT BUSINESS DEVELOPMENT: OSMIN Win. ANESTHESIA: Spinal, adductor nerve block and Orthomix. OPERATIVE PROCEDURE: The patient was taken to the operating room, anesthetized under Anesthesia as dictated. Pneumatic tourniquet was placed about her obese upper thigh. Her left lower extremity was prepped and draped with ChloraPrep in sterile fashion. Exam demonstrated that she had about a 10 degree flexion contracture, but she had good flexion to 130 degrees. She did not have any instability medially or laterally with varus/valgus stress. She had significant crepitation in the patellofemoral joint, mainly with lateral tilt to the patella. The left leg was sterilely prepped and draped with ChloraPrep. The leg was elevated, exsanguinated with Esmarch bandage. Pneumatic tourniquet was raised to 350 mmHg because of her obesity. Anterior incision made across the left knee. Skin incised sharply. Subcutaneous flaps were elevated. Incision was made through medial retinaculum extended up in the mid third of the quadriceps tendon and extended down to the medial tibial tubercle. Intraarticular findings demonstrated she actually had tricompartmental DJD. She had bridging bone wear on the lateral side of the patella with some bone loss of the lateral patella and more lateral-aligned patella with exposed bone on the trochlear groove in the lateral femoral condyle and trochlear groove. She also had areas of grade 4 wear on the medial femoral condyle and lateral femoral condyle but not [id number] in that area of the knee. She had tricompartmental osteophytes. I used the [employer] Journey 2.0, total knee arthroplasty system using [employer] MRI templating. She was templated for a 4 femur, 3 tibia. To expose the knee, the infrapatellar fat pad was resected then the meniscal remnants, cruciate ligaments were resected. The fat pad over the anterior femur for placement of the component in that area was resected and lateral synovial bands were released. The femur was exposed with retractors. The custom femoral cutting block was inserted, pinned in position and distal femoral cut was made. Then the 5-in-1 cutting block was placed for a size 4 femur. The anterior, posterior and chamfer cuts were made and then the knee was extended and a subperiosteal peel lateral release was performed around the patella and the patella width was measured and width was reproduced using a freehand cut technique and a 32 mm patellar component. Three drill holes were made for the component and the excess lateral facet was bevelled off to prevent any impingement. The tibia was then subluxed. The custom tibial cutting block was pinned in position and the proximal tibial cut was made. I used the lamina bridge gang worker and assessed ligamentous balance, ligaments were balanced in extension and flexion without any releases. The tibia was re-exposed and the trial 3 was externally rotated in line with the tibial tubercle, pinned in position, the punch for the stem was used. Then, the 4 femoral trial was inserted, centered, the notch cutting devices were used. A collet was placed and 12 poly high flex insert posterior stabilized trial was placed. This gave balanced ligaments through full range of motion and the patellar tracking was central. The trials removed, and the Orthomix was injected per protocol. The knee was copiously irrigated with pulsatile lavage antibiotic solution and bacitracin. Final components were cemented with Simplex G cement. Final components were the 4 Oxinium [employer] Journey 2.0 Oxinium posterior stabilized left femoral component, a 3 tibial baseplate. The 12 mm high flex poly insert posterior stabilized and a 32 mm patella. All cement cured, we used Betadine soak per protocol and once the cement cured, the knee was copiously irrigated with antibiotic solution with bacitracin, 2 drains were brought out laterally. The quadriceps tendon and medial retinaculum were closed with interrupted [id number] #1 Vicryl sutures. Subcutaneous tissues were closed with interrupted 2-0 Vicryl sutures. Skin was closed with a Ziploc technique and a protective dressing. Tourniquet was let down and the patient tolerated the procedure well. OSMIN Win was my dental hygiene administrative assistant and he functioned as dental hygiene administrative assistant through the entire procedure. He assisted in soft tissue retraction, instrument management and performed the fascial, subcutaneous and skin closure and will participate in postop care of the patient. I attest to the content of the Intraoperative Record and any orders documented therein. Any exception s are noted below.
[2017-07-12] MEDS: D5W AND 1/2NSS + 20MEQ KCL 1,000 ML IV SCH ×2 (00:29→09:22)
[2017-07-12] MEDS: TRAMADOL HCL 50 MG TAB PO PRN (00:31)
[2017-07-12] MEDS: CEFAZOLIN IV 2,000 MG in SYRINGE 0 ML IV SCH (02:07)
[2017-07-12 03:38] VITALS: BP 108/70; PULSE 71; TEMP 36.4; O2SAT 97
[2017-07-12] MEDS: ACETAMINOPHEN 500 MG TAB PO SCH ×3 (05:36→21:45)
[2017-07-12 06:25] LABS: HEMATOCRIT 32.3 % (37-47); MEAN CELL VOLUME 90.5 fL (80-100); MEAN CORPUSCULAR HGB CONC 33.1 g/dl (32-36); MEAN PLATELET VOLUME 9.7 fL (7.4-10.4); PLATELET COUNT 238 K/uL (130-400); RED BLOOD COUNT 3.57 M/uL (4.2-5.4)
[2017-07-12 06:58] LABS: BUN/CREATININE RATIO 15.4 (10-20); CALCIUM 8.7 mg/dl (8.5-10.1); CREATININE 1.03 mg/dl (0.60-1.20)
[2017-07-12 07:33] VITALS: BP 115/78; PULSE 71; TEMP 36.4; O2SAT 98
--- NOTE | 2017-07-12 07:37 | Anesthesiology Progress Note ---
Anesthesia Post Op Note Date & Time Jul 12, 2017 at 07:37 Vital Signs Pain Intensity: 4.0 Vital Signs Past 12 Hours Date Time Temp Pulse Resp B/P (MAP) Pulse Ox O2 Delivery O2 Flow Rate FiO2 07/12/17 07:33 36.4 71 19 115/78 (90) 98 Room Air 07/12/17 03:38 36.4 71 16 108/70 (83) 97 Room Air 07/12/17 00:25 Room Air 07/11/17 23:07 36.8 68 18 109/70 (83) 95 Room Air Notes Mental Status: alert / awake / arousable, participated in evaluation Pt Amnestic to Procedure: Yes Nausea / Vomiting: adequately controlled Pain: adequately controlled Airway Patency, RR, SpO2: stable & adequate BP & HR: stable & adequate Hydration State: stable & adequate Anesthetic Complications: no major complications apparent
[2017-07-12] MEDS ORDERED: ALUMINUM/MAGNESIUM/SIMETH (MAALOX MAX) 30 ML UDC PO ONE (07:45)
[2017-07-12 08:14] VITALS: O2SAT 98
[2017-07-12] MEDS ORDERED: NON-FORMULARY MEDICATION (Dexlansoprazole (Dexilant) 60 MG) PO SCH (09:00)
[2017-07-12] MEDS ORDERED: PANTOprazole SOD 40 MG TAB PO SCH (09:00)
[2017-07-12] MEDS ORDERED: BIOTIN 10 MG PO SCH (09:00)
--- NOTE | 2017-07-12 09:01 | Orthopedic Progress Note ---
Orthopedic Progress Note Date of Service Jul 12, 2017. Subjective Post OP Day: 1 Reports: feeling well, pain controlled w PO medications, Denies: SOB, nausea / vomiting, light headedness, calf pain Additional Notes: PER NURSING, PATIENT HAD AN EPISODE OF CHEST DISCOMFORT THAT RADIATED TOWARDS HER NECK THIS AM, MEDICINE NOTIFIED, EKG ORDERED PATIENT TAKES A REFLUX MED AT HOME THAT IS NOT ON FORMULARY HERE AT HOSPITAL, GETTING PROTONIX WHICH PATIENT STATES HAS NOT WORKED WELL FOR HER REFLUX IN THE PAST. Objective calves soft nontender, N/V intact, capillary refill less than 2 sec., dressing C /D/I, A&O x3, toes mobile Date Time Temp Pulse Resp B/P (MAP) Pulse Ox O2 Delivery O2 Flow Rate FiO2 07/12/17 08:14 Nasal Cannula 98.0 07/12/17 07:33 36.4 71 19 115/78 (90) 98 Room Air 07/12/17 03:38 36.4 71 16 108/70 (83) 97 Room Air 07/12/17 00:25 Room Air 07/11/17 23:07 36.8 68 18 109/70 (83) 95 Room Air 07/11/17 16:16 96 Room Air 07/11/17 15:35 Room Air 07/11/17 15:30 36.6 73 16 107/72 (84) 96 Nasal Cannula 2.0 07/11/17 13:40 74 16 109/75 (86) 98 Nasal Cannula 2.0 07/11/17 12:59 36.7 70 16 106/74 (85) 98 Nasal Cannula 2.0 07/11/17 12:30 36.6 71 16 106/82 (90) 96 Nasal Cannula 2.0 07/11/17 12:30 Room Air 2.0 07/11/17 12:05 69 14 104/65 97 Nasal Cannula 2 07/11/17 11:55 36.3 71 14 102/68 96 Nasal Cannula 2 07/11/17 11:45 75 17 113/63 97 Nasal Cannula 2 07/11/17 11:35 72 15 93/64 97 Nasal Cannula 2 07/11/17 11:25 73 13 113/70 97 Nasal Cannula 2 07/11/17 11:17 36.0 77 18 114/63 95 Nasal Cannula 2 Laboratory Results 24 Hours: Test 07/12/17 06:04 Hematocrit 32.3 % Hemoglobin 10.7 g/dL Assessment & Plan Assessment: POD#1, LEFT TKA Plan: PT/ OT DVT PROPH- ASA D/C PLANNING- [facility] IF ACCEPTED PER MEDICINE- WILL WORK UP CHEST PAIN/ POSS REFLUX, EKG NORMAL. PATIENT WILL GET HER HOME REFLUX MEDICATION TO TAKE HERE AT HOSPITAL Inhouse Planning Pain Management: Ultram, Morphine, PO Tylenol, Oxy IR DVT Prophylaxis: TEDs, SCDs, ASA Discharge Planning Discharge Planning: uncertain Pain Management: PO Tylenol, Oxy IR DVT Prophylaxis: TEDs, ASA Therapy: Physical Therapy, Occupational Therapy
[2017-07-12] MEDS: DOCUSATE SODIUM 100 MG CAP PO SCH ×2 (09:19→20:40)
[2017-07-12] MEDS: MULTIVITAMIN TAB PO SCH (09:20)
[2017-07-12] MEDS: LISINOPRIL 5 MG TAB PO SCH (09:20)
[2017-07-12] MEDS: CALCIUM 600MG + VIT D 400 IU TAB PO SCH (09:20)
[2017-07-12] MEDS: GABAPENTIN 300 MG CAP PO SCH ×4 (09:20→20:40)
[2017-07-12] MEDS: METAXALONE 800 MG TAB PO SCH ×4 (09:21→20:40)
[2017-07-12] MEDS: ASPIRIN 81 MG ECTAB PO SCH ×2 (09:21→20:40)
[2017-07-12] MEDS: OXYCODONE HCL IR 5 MG TAB (IMMEDIATE RELEASE) PO PRN ×4 (09:28→22:06)
[2017-07-12 11:44] VITALS: BP 114/76; PULSE 70; TEMP 36.6; O2SAT 96
[2017-07-12 15:19] VITALS: BP 105/68; PULSE 84; TEMP 36.7; O2SAT 97
--- NOTE | 2017-07-12 18:56 | Progress Note ---
Internal Med Progress Note Date of Service: Jul 12, 2017. Provider Documentation: SUBJECTIVE: resting comfortably afebrile no nausea ambulated fine had some chest pain early in the morning for few moments and gone away and patient attributes it to GERD OBJECTIVE: Vital Signs-as noted below Exam: General-alert and oriented. Not in distress ENT-normal hearing Neck-no neck masses Lungs- cta b/l no wheezing or crackles Heart-s1 and s2 heard regular rate and rhythm no murmurs Extremities-s/p LEFT TKA Neuro-alert and oriented moves extremities Lab data as noted below. ASSESSMENT & PLAN: This is a 61yo F with a PMH of HTN, HLD, GERD, lumbar disc degeneration and OA who is POD#0 s/p Left total knee arthroplasty by Dr. Shrestha. S/p L total knee arthroplasty: POD#[address] Shrestha. post op management as per ortho HTN: on home lisinopril will monitor Lumbar disc disease: on metaxalone HLD: on Crestor GERD ppi chest pain one episode mostly gerd ekg unremarkable no more episodes and patient doing fine DVT Ppx: Per ortho DISPOSITION as per ortho Vital Signs: Date Time Temp Pulse Resp B/P (MAP) Pulse Ox O2 Delivery O2 Flow Rate FiO2 07/12/17 15:35 Room Air 07/12/17 15:19 36.7 84 16 105/68 (80) 97 Room Air 07/12/17 11:44 36.6 70 18 114/76 (89) 96 Room Air 07/12/17 08:14 98 Nasal Cannula 2.0 07/12/17 07:33 36.4 71 19 115/78 (90) 98 Room Air 07/12/17 07:29 Room Air 07/12/17 03:38 36.4 71 16 108/70 (83) 97 Room Air 07/12/17 00:25 Room Air 07/11/17 23:07 36.8 68 18 109/70 (83) 95 Room Air Lab Results: Results Past 24 Hours Test 07/12/17 06:04 Range/Units White Blood Count 13.60 4.8-10.8 K/uL Red Blood Count 3.57 4.2-5.4 M/uL Hemoglobin 10.7 12.0-16.0 g/dL Hematocrit 32.3 37-47 % Mean Corpuscular Volume 90.5 80-100 fL Mean Corpuscular Hemoglobin 30.0 25-34 pg Mean Corpuscular Hemoglobin Concent 33.1 32-36 g/dl RDW Standard Deviation 45.1 36.4-46.3 fL RDW Coefficient of Variation 13.4 11.5-14.5 % Platelet Count 238 130-400 K/uL Mean Platelet Volume 9.7 7.4-10.4 fL Sodium Level 142 136-145 mmol/L Potassium Level 4.0 3.5-5.1 mmol/L Chloride Level 109 98-107 mmol/L Carbon Dioxide Level 26 21-32 mmol/L Anion Gap 7.0 3-11 mmol/L Blood Urea Nitrogen 16 7-18 mg/dl Creatinine 1.03 0.60-1.20 mg/dl Est Creatinine Clear Calc Drug Dose 69.8 ml/min Estimated GFR () 67.0 Estimated GFR (Non- 57.8 BUN/Creatinine Ratio 15.4 10-20 Random Glucose 124 70-99 mg/dl Calcium Level 8.7 8.5-10.1 mg/dl
[2017-07-12] MEDS: AMITRIPTYLINE HCL 50 MG TAB PO SCH (20:40)
[2017-07-12] MEDS: ROSUVASTATIN CALCIUM 10 MG TAB PO SCH (20:40)
[2017-07-12 22:55] VITALS: BP 97/58; PULSE 78; TEMP 36.7; O2SAT 96
[2017-07-12] MEDS: DEXLANSOPRAZOLE 60 MG CAPDR PO SCH (23:04)
[2017-07-13] VITALS (8 sets, daily range): BP systolic 89–123; BP diastolic 60–80; PULSE 57–79; TEMP 36.6–37.1; O2SAT 99–100
[2017-07-13] MEDS: TRAMADOL HCL 50 MG TAB PO PRN ×2 (01:07→14:10)
[2017-07-13] MEDS: ACETAMINOPHEN 500 MG TAB PO SCH ×3 (05:49→21:56)
[2017-07-13 06:18] LABS: HEMATOCRIT 31.3 % (37-47); MEAN CELL VOLUME 91.5 fL (80-100); MEAN CORPUSCULAR HEMOGLOBIN 29.5 pg (25-34); MEAN CORPUSCULAR HGB CONC 32.3 g/dl (32-36); MEAN PLATELET VOLUME 9.6 fL (7.4-10.4); PLATELET COUNT 207 K/uL (130-400); RED BLOOD COUNT 3.42 M/uL (4.2-5.4); WHITE BLOOD COUNT 9.71 K/uL (4.8-10.8)
[2017-07-13 06:49] LABS: CALCIUM 8.5 mg/dl (8.5-10.1); CREATININE 0.96 mg/dl (0.60-1.20)
[2017-07-13] MEDS: OXYCODONE HCL IR 5 MG TAB (IMMEDIATE RELEASE) PO PRN ×4 (07:42→21:15)
[2017-07-13] MEDS: DOCUSATE SODIUM 100 MG CAP PO SCH ×2 (08:38→21:14)
[2017-07-13] MEDS: METAXALONE 800 MG TAB PO SCH ×4 (08:38→21:15)
[2017-07-13] MEDS: ASPIRIN 81 MG ECTAB PO SCH ×2 (08:39→21:15)
[2017-07-13] MEDS: DEXLANSOPRAZOLE 60 MG CAPDR PO SCH (08:39)
[2017-07-13] MEDS: CALCIUM 600MG + VIT D 400 IU TAB PO SCH (08:40)
[2017-07-13] MEDS: MULTIVITAMIN TAB PO SCH (08:40)
[2017-07-13] MEDS: GABAPENTIN 300 MG CAP PO SCH ×4 (08:40→21:15)
[2017-07-13] MEDS: LISINOPRIL 5 MG TAB PO SCH (08:41)
--- NOTE | 2017-07-13 09:22 | Orthopedic Progress Note ---
Orthopedic Progress Note Date of Service Jul 13, 2017. Subjective Post OP Day: 2 Reports: feeling well, pain controlled w PO medications (Painful left knee this AM but improved with pain meds.), Denies: complaints, chest pain, SOB, nausea / vomiting, light headedness, calf pain Objective calves soft nontender, N/V intact, capillary refill less than 2 sec., dressing C /D/I, A&O x3, toes mobile Date Time Temp Pulse Resp B/P (MAP) Pulse Ox O2 Delivery O2 Flow Rate FiO2 07/13/17 07:20 36.6 75 16 120/80 (93) 99 Room Air 07/13/17 06:11 61 104/70 (81) 100 Nasal Cannula 2.0 07/13/17 05:55 123/79 (94) 07/13/17 05:40 57 20 89/60 (70) 99 Nasal Cannula 4.0 07/13/17 01:00 Room Air 07/12/17 22:55 36.7 78 16 97/58 (71) 96 Room Air 07/12/17 15:35 Room Air 07/12/17 15:19 36.7 84 16 105/68 (80) 97 Room Air 07/12/17 11:44 36.6 70 18 114/76 (89) 96 Room Air Laboratory Results 24 Hours: Test 07/13/17 05:56 Hematocrit 31.3 % Hemoglobin 10.1 g/dL Assessment & Plan Assessment: POD#2, LEFT TKA Plan: PT/ OT DVT PROPH- ASA D/C PLANNING- [facility] IF ACCEPTED. Will be Saturday (07.15.17) at the earliest. Patient lives alone and has concerns of going home by herself. PER MEDICINE- WILL WORK UP CHEST PAIN/ POSS REFLUX, EKG NORMAL. PATIENT WILL GET HER HOME REFLUX MEDICATION TO TAKE HERE AT HOSPITAL Inhouse Planning Pain Management: Ultram, Morphine, PO Tylenol, Oxy IR DVT Prophylaxis: TEDs, SCDs, ASA Discharge Planning Discharge Planning: uncertain Pain Management: PO Tylenol, Oxy IR DVT Prophylaxis: TEDs, ASA Therapy: Physical Therapy, Occupational Therapy
--- NOTE | 2017-07-13 18:19 | Progress Note ---
Internal Med Progress Note Date of Service: Jul 13, 2017. Provider Documentation: SUBJECTIVE: Had some dizziness in the morning when she got up fast from bed but doing fine since then afebrile denies sob or chest pain afebrile ambulating ok has pain at surgery site OBJECTIVE: Vital Signs-as noted below Exam: General-alert and oriented. Not in distress ENT-normal hearing Neck-no neck masses Lungs- cta b/l no wheezing or crackles Heart-s1 and s2 heard regular rate and rhythm no murmurs Extremities-s/p LEFT TKA Neuro-alert and oriented moves extremities Lab data as noted below. ASSESSMENT & PLAN: This is a 61yo F with a PMH of HTN, HLD, GERD, lumbar disc degeneration and OA who is POD#0 s/p Left total knee arthroplasty by Dr. Shrestha. S/p L total knee arthroplasty: POD#2with Dr. Shrestha. post op management as per ortho HTN: on home lisinopril will monitor Lumbar disc disease: on metaxalone HLD: on Crestor GERD ppi chest pain one episode mostly gerd ekg unremarkable no more episodes and patient doing fine stable DVT Ppx: Per ortho DISPOSITION as per ortho Vital Signs: Date Time Temp Pulse Resp B/P (MAP) Pulse Ox O2 Delivery O2 Flow Rate FiO2 07/13/17 14:57 36.7 72 18 103/70 (81) 99 Room Air 07/13/17 14:06 79 119/70 (86) 07/13/17 07:45 99 Room Air 07/13/17 07:20 36.6 75 16 120/80 (93) 99 Room Air 07/13/17 06:11 61 104/70 (81) 100 Nasal Cannula 2.0 07/13/17 05:55 123/79 (94) 07/13/17 05:40 57 20 89/60 (70) 99 Nasal Cannula 4.0 07/13/17 01:00 Room Air 07/12/17 22:55 36.7 78 16 97/58 (71) 96 Room Air Lab Results: Results Past 24 Hours Test 07/13/17 05:56 Range/Units White Blood Count 9.71 4.8-10.8 K/uL Red Blood Count 3.42 4.2-5.4 M/uL Hemoglobin 10.1 12.0-16.0 g/dL Hematocrit 31.3 37-47 % Mean Corpuscular Volume 91.5 80-100 fL Mean Corpuscular Hemoglobin 29.5 25-34 pg Mean Corpuscular Hemoglobin Concent 32.3 32-36 g/dl RDW Standard Deviation 45.6 36.4-46.3 fL RDW Coefficient of Variation 13.7 11.5-14.5 % Platelet Count 207 130-400 K/uL Mean Platelet Volume 9.6 7.4-10.4 fL Sodium Level 140 136-145 mmol/L Potassium Level 4.0 3.5-5.1 mmol/L Chloride Level 108 98-107 mmol/L Carbon Dioxide Level 26 21-32 mmol/L Anion Gap 6.0 3-11 mmol/L Blood Urea Nitrogen 13 7-18 mg/dl Creatinine 0.96 0.60-1.20 mg/dl Est Creatinine Clear Calc Drug Dose 74.9 ml/min Estimated GFR () 72.9 Estimated GFR (Non- 62.9 BUN/Creatinine Ratio 14.0 10-20 Random Glucose 96 70-99 mg/dl Calcium Level 8.5 8.5-10.1 mg/dl
[2017-07-13] MEDS: ROSUVASTATIN CALCIUM 10 MG TAB PO SCH (21:14)
[2017-07-13] MEDS: AMITRIPTYLINE HCL 50 MG TAB PO SCH (21:15)
[2017-07-14] MEDS: OXYCODONE HCL IR 5 MG TAB (IMMEDIATE RELEASE) PO PRN ×4 (01:59→20:33)
[2017-07-14] MEDS: ACETAMINOPHEN 500 MG TAB PO SCH ×3 (05:44→22:01)
[2017-07-14 08:00] VITALS: O2SAT 96
[2017-07-14 08:24] VITALS: BP 121/82; PULSE 86; TEMP 37.1; O2SAT 96
[2017-07-14] MEDS: CALCIUM 600MG + VIT D 400 IU TAB PO SCH (08:25)
[2017-07-14] MEDS: DOCUSATE SODIUM 100 MG CAP PO SCH ×2 (08:25→20:32)
[2017-07-14] MEDS: LISINOPRIL 5 MG TAB PO SCH (08:26)
[2017-07-14] MEDS: ASPIRIN 81 MG ECTAB PO SCH ×2 (08:26→20:32)
[2017-07-14] MEDS: GABAPENTIN 300 MG CAP PO SCH ×4 (08:26→20:32)
[2017-07-14] MEDS: METAXALONE 800 MG TAB PO SCH ×4 (08:27→20:32)
[2017-07-14] MEDS: MULTIVITAMIN TAB PO SCH (08:27)
[2017-07-14] MEDS: DEXLANSOPRAZOLE 60 MG CAPDR PO SCH (08:28)
--- NOTE | 2017-07-14 10:15 | Orthopedic Progress Note ---
Orthopedic Progress Note Date of Service Jul 14, 2017. Subjective Post OP Day: 3 Reports: feeling well, pain controlled w PO medications, Denies: complaints, chest pain, SOB, nausea / vomiting, light headedness, calf pain Objective calves soft nontender, N/V intact, capillary refill less than 2 sec., dressing C /D/I, A&O x3, toes mobile Date Time Temp Pulse Resp B/P (MAP) Pulse Ox O2 Delivery O2 Flow Rate FiO2 07/14/17 08:24 37.1 86 16 121/82 (95) 96 Room Air 07/14/17 08:00 96 Room Air 07/13/17 23:20 Room Air 07/13/17 22:55 37.1 74 16 106/69 (81) 99 Room Air 07/13/17 15:50 Room Air 07/13/17 14:57 36.7 72 18 103/70 (81) 99 Room Air 07/13/17 14:06 79 119/70 (86) Assessment & Plan Assessment: POD#3, LEFT TKA Plan: PT/ OT DVT PROPH- ASA D/C PLANNING- [facility] IF ACCEPTED. Will be Saturday (07.15.17) at the earliest. Patient lives alone and has concerns of going home by herself. PER MEDICINE- WILL WORK UP CHEST PAIN/ POSS REFLUX, EKG NORMAL. PATIENT WILL GET HER HOME REFLUX MEDICATION TO TAKE HERE AT HOSPITAL Inhouse Planning Pain Management: Ultram, Morphine, PO Tylenol, Oxy IR DVT Prophylaxis: TEDs, SCDs, ASA Discharge Planning Discharge Planning: uncertain Pain Management: PO Tylenol, Oxy IR DVT Prophylaxis: TEDs, ASA Therapy: Physical Therapy, Occupational Therapy
--- NOTE | 2017-07-14 10:17 | Discharge Instructions ---
Discharge Instructions Date of Service Jul 14, 2017. Admission Reason for Admission: Left Knee Degenerative Joint Disease Discharge Discharge Diagnosis / Problem: left knee osteoarthritis Discharge Goals Goal(s): Decrease discomfort, Improve function Activity Recommendations Activity Limitations: per Instructions/Follow-up section Weightbearing Status: Left weightbearing (as tolerated) . Instructions / Follow-Up Instructions / Follow-Up ACTIVITY RECOMMENDATIONS: SELF CARE INSTRUCTIONS AFTER TOTAL KNEE REPLACEMENT A. You may need to continue a physical therapy program after discharge from the hospital. There are several options available to you. Your doctor will assist you in selecting the best one for you. 1. An out-patient facility 3 times a week for therapy. 2. Home therapy for 1 to 2 weeks with outpatient therapy to follow. 3. Continue working on all exercises taught by physical therapy three times a day for 20 minutes on non-therapy days. Your goals should be to increase the bending of your knee to 90 degrees and beyond and to fully straighten your knee. Ice and elevate knee after exercise. B. Weight as tolerated with a walker or as instructed by your physician. C. It is okay to shower if minimal to no drainage from incision. No Baths. Do not soak wound. D. Make walking a part of your daily routine. Be up as much as comfortable with rest periods throughout the day. Rest with leg elevation is very important. Use the ice wrap frequently for the first 3-4 weeks. E. There are no restrictions on activities. You may ride in a car, shop, participate in animal cytologist and all social activities. F. Wear the long elastic stockings (THEO hose) 20 hours a day for one month after surgery. They can be removed several times a day for laundering and when showering. G. Silverlon- This is a large adhesive bandage that contains silver ions. This helps your incision heal by fighting off bacteria and protecting it from the outside environment. You are permitted to shower with this dressing. This will remain on your incision for 7 days and then should be removed. Some visible blood or drainage through the dressing window is normal. If there is significant drainage or leaking noted before the 7 days notify your doctor's office immediately. Once removed, keep incision clean and dry. If there is any drainage or redness noted, please call your surgeon. SPECIAL CARE INSTRUCTIONS: VERY IMPORTANT TO READ AND REVIEW A. Take Aspirin(blood thinning medications) as directed by your doctor. If on Coumadin, have a pro-time (blood test) drawn according to your doctor's instructions. This will tell the doctor how well the Coumadin is thinning your blood. B. There are a few signs you need to watch for after you are home. Call [facility] if you notice any of the followin. Increased severe knee pain. Some pain is expected especially when you exercise. 2. Increased swelling in your leg or knee; pain or swelling of the calf muscle in either lower leg. 3. Any redness or fluid drainage from the incision. 4. Shortness of breath or chest pain. 5. A Temperature of 101 degrees F or greater. C. Please call [facility] at if you have any concerns or questions about your operation or recovery. The doctor or his nurse will return your call promptly. D. You must take antibiotics before dental work, bladder, bowel or other surgery. Your doctor will provide you with a permanent care to carry describing this precaution. FOLLOW UP VISIT: If appointment is not already scheduled: Please call [facility] to make a follow-up appointment for after your surgery at . Current Hospital Diet Patient's current hospital diet: Regular Diet Discharge Diet Recommended Diet: Regular Diet Procedures Procedures Performed: Left Total Knee Arthroplasty Pending Studies Studies pending at discharge: no Laboratory Results Hemoglobin A1c Test 06/04/17 15:05 Range/Units Estimated Average Glucose 126 mg/dl Hemoglobin A1c 6.0 H 4.5-5.6 % Medical Emergencies . Who to Call and When: Medical Emergencies: If at any time you feel your situation is an emergency, please call 911 immediately. . Non-Emergent Contact Non-Emergency issues call your: Surgeon Call Non-Emergent contact if: temperature is above 101, your pain is not controlled, your pain is worsening, wound has increased drainage, wound has increased redness . "Provider Documentation" section prepared by Gino Lancaster. . VTE Core Measure Inpt VTE Proph given/why not?: Other Anticoagulation (Aspirin), T.E.D. Stockings
--- NOTE | 2017-07-14 10:19 | Discharge Instructions ---
Discharge Instructions Date of Service Jul 14, 2017. Admission Reason for Admission: Left Knee Degenerative Joint Disease Discharge Discharge Diagnosis / Problem: left knee osteoarthritis Discharge Goals Goal(s): Decrease discomfort, Improve function Activity Recommendations Activity Level: Up Ad Johanna Therapies: Physical Therapy, Weight Bearing Status (left weightbearing as tolerated) Weightbearing Status: Left weightbearing (as tolerated) . Additional Information Patient informed of condition: Yes Advance Directives: Yes DNR: No Level of Care: Acute Rehab Communicable Disease: No Prognosis: Improving Instructions / Follow-Up Instructions / Follow-Up ACTIVITY RECOMMENDATIONS: SELF CARE INSTRUCTIONS AFTER TOTAL KNEE REPLACEMENT A. You may need to continue a physical therapy program after discharge from the hospital. There are several options available to you. Your doctor will assist you in selecting the best one for you. 1. An out-patient facility 3 times a week for therapy. 2. Home therapy for 1 to 2 weeks with outpatient therapy to follow. 3. Continue working on all exercises taught by physical therapy three times a day for 20 minutes on non-therapy days. Your goals should be to increase the bending of your knee to 90 degrees and beyond and to fully straighten your knee. Ice and elevate knee after exercise. B. Weight as tolerated with a walker or as instructed by your physician. C. It is okay to shower if minimal to no drainage from incision. No Baths. Do not soak wound. D. Make walking a part of your daily routine. Be up as much as comfortable with rest periods throughout the day. Rest with leg elevation is very important. Use the ice wrap frequently for the first 3-4 weeks. E. There are no restrictions on activities. You may ride in a car, shop, participate in student success coach and all social activities. F. Wear the long elastic stockings (THEO hose) 20 hours a day for one month after surgery. They can be removed several times a day for laundering and when showering. G. Silverlon- This is a large adhesive bandage that contains silver ions. This helps your incision heal by fighting off bacteria and protecting it from the outside environment. You are permitted to shower with this dressing. This will remain on your incision for 7 days and then should be removed. Some visible blood or drainage through the dressing window is normal. If there is significant drainage or leaking noted before the 7 days notify your doctor's office immediately. Once removed, keep incision clean and dry. If there is any drainage or redness noted, please call your surgeon. SPECIAL CARE INSTRUCTIONS: VERY IMPORTANT TO READ AND REVIEW A. Take Aspirin(blood thinning medications) as directed by your doctor. If on Coumadin, have a pro-time (blood test) drawn according to your doctor's instructions. This will tell the doctor how well the Coumadin is thinning your blood. B. There are a few signs you need to watch for after you are home. Call [facility] if you notice any of the followin. Increased severe knee pain. Some pain is expected especially when you exercise. 2. Increased swelling in your leg or knee; pain or swelling of the calf muscle in either lower leg. 3. Any redness or fluid drainage from the incision. 4. Shortness of breath or chest pain. 5. A Temperature of 101 degrees F or greater. C. Please call [facility] at if you have any concerns or questions about your operation or recovery. The doctor or his nurse will return your call promptly. D. You must take antibiotics before dental work, bladder, bowel or other surgery. Your doctor will provide you with a permanent care to carry describing this precaution. FOLLOW UP VISIT: If appointment is not already scheduled: Please call [facility] to make a follow-up appointment for after your surgery at . Current Hospital Diet Patient's current hospital diet: Regular Diet Discharge Diet Recommended Diet: Regular Diet Procedures Procedures Performed: Left Total Knee Arthroplasty Pending Studies Studies pending at discharge: no Laboratory Results Hemoglobin A1c Test 06/04/17 15:05 Range/Units Estimated Average Glucose 126 mg/dl Hemoglobin A1c 6.0 H 4.5-5.6 % Medical Emergencies . Who to Call and When: Medical Emergencies: If at any time you feel your situation is an emergency, please call 911 immediately. . Non-Emergent Contact Non-Emergency issues call your: Surgeon Call Non-Emergent contact if: temperature is above 101, your pain is not controlled, your pain is worsening, wound has increased drainage, wound has increased redness . . "Provider Documentation" section prepared by Gino Lancaster. . Core Measure Problem Core Measures: None
[2017-07-14 15:12] VITALS: BP 116/76; PULSE 75; TEMP 37.1; O2SAT 98
--- NOTE | 2017-07-14 18:02 | Progress Note ---
Internal Med Progress Note Date of Service: Jul 14, 2017. Provider Documentation: SUBJECTIVE: sitting on the chair comfortably has lot of pain at surgery site afebrile no sob awaiting placement ambulated with PT OBJECTIVE: Vital Signs-as noted below Exam: General-alert and oriented. Not in distress ENT-normal hearing Neck-no neck masses Lungs- cta b/l no wheezing or crackles Heart-s1 and s2 heard regular rate and rhythm no murmurs Extremities-s/p LEFT TKA Neuro-alert and oriented moves extremities Lab data as noted below. ASSESSMENT & PLAN: This is a 61yo F with a PMH of HTN, HLD, GERD, lumbar disc degeneration and OA who is POD#0 s/p Left total knee arthroplasty by Dr. Shrestha. S/p L total knee arthroplasty: POD#3with Dr. Shrestha. post op management as per ortho HTN: on home lisinopril stable will monitor Lumbar disc disease: on metaxalone HLD: on Crestor GERD ppi chest pain one episode mostly gerd ekg unremarkable no more episodes and patient doing fine stable DVT Ppx: Per ortho DISPOSITION as per ortho Vital Signs: Date Time Temp Pulse Resp B/P (MAP) Pulse Ox O2 Delivery O2 Flow Rate FiO2 07/14/17 16:10 Room Air 07/14/17 15:12 37.1 75 16 116/76 (89) 98 Room Air 07/14/17 08:24 37.1 86 16 121/82 (95) 96 Room Air 07/14/17 08:00 96 Room Air 07/13/17 23:20 Room Air 07/13/17 22:55 37.1 74 16 106/69 (81) 99 Room Air
[2017-07-14] MEDS: AMITRIPTYLINE HCL 50 MG TAB PO SCH (20:32)
[2017-07-14] MEDS: ROSUVASTATIN CALCIUM 10 MG TAB PO SCH (20:32)
[2017-07-14] MEDS: TRAMADOL HCL 50 MG TAB PO PRN (22:01)
[2017-07-14 22:55] VITALS: BP 127/81; PULSE 77; TEMP 37.2; O2SAT 97
[2017-07-15] MEDS: OXYCODONE HCL IR 5 MG TAB (IMMEDIATE RELEASE) PO PRN ×3 (02:27→12:07)
[2017-07-15 06:14] VITALS: BP 112/75; PULSE 74; TEMP 36.8; O2SAT 95
[2017-07-15] MEDS: ACETAMINOPHEN 500 MG TAB PO SCH (06:26)
--- NOTE | 2017-07-15 07:25 | Orthopedic Progress Note ---
Orthopedic Progress Note Date of Service Jul 15, 2017. Subjective Post OP Day: 4 Reports: feeling well, Denies: chest pain, SOB, nausea / vomiting, light headedness, calf pain Objective calves soft nontender, N/V intact, dressing C/D/I (SILVERLON), A&O x3, toes mobile Date Time Temp Pulse Resp B/P (MAP) Pulse Ox O2 Delivery O2 Flow Rate FiO2 07/15/17 06:14 36.8 74 16 112/75 (87) 95 Room Air 07/14/17 23:40 Room Air 07/14/17 22:55 37.2 77 16 127/81 (96) 97 Room Air 07/14/17 16:10 Room Air 07/14/17 15:12 37.1 75 16 116/76 (89) 98 Room Air 07/14/17 08:24 37.1 86 16 121/82 (95) 96 Room Air 07/14/17 08:00 96 Room Air Assessment & Plan Assessment: POD#4, LEFT TKA Plan: PT/ OT DVT PROPH- ASA D/C PLANNING- [facility] ACCEPTED. Will be Saturday (07.15.17) at the earliest. Patient lives alone and has concerns of going home by herself. PER MEDICINE- WILL WORK UP CHEST PAIN/ POSS REFLUX, EKG NORMAL. PATIENT WILL GET HER HOME REFLUX MEDICATION TO TAKE HERE AT HOSPITAL Inhouse Planning Pain Management: Ultram, Morphine, PO Tylenol, Oxy IR DVT Prophylaxis: TEDs, SCDs, ASA Discharge Planning Discharge Planning: uncertain Pain Management: PO Tylenol, Oxy IR DVT Prophylaxis: TEDs, ASA Therapy: Physical Therapy, Occupational Therapy
[2017-07-15] MEDS ORDERED: ACET-24 PO (07:27)
[2017-07-15] MEDS ORDERED: ONDA8TAB6 PO (07:27)
[2017-07-15] MEDS ORDERED: ASPEC81 PO (07:27)
[2017-07-15] MEDS ORDERED: RXC5 PO (07:27)
[2017-07-15] MEDS: DOCUSATE SODIUM 100 MG CAP PO SCH (07:45)
[2017-07-15] MEDS: LISINOPRIL 5 MG TAB PO SCH (07:46)
[2017-07-15] MEDS: CALCIUM 600MG + VIT D 400 IU TAB PO SCH (07:46)
[2017-07-15] MEDS: METAXALONE 800 MG TAB PO SCH ×2 (07:46→13:06)
[2017-07-15] MEDS: ASPIRIN 81 MG ECTAB PO SCH (07:46)
[2017-07-15] MEDS: MULTIVITAMIN TAB PO SCH (07:47)
[2017-07-15] MEDS: GABAPENTIN 300 MG CAP PO SCH ×2 (07:48→13:06)
[2017-07-15] MEDS: DEXLANSOPRAZOLE 60 MG CAPDR PO SCH (07:48)
[2017-07-15 09:03] VITALS: O2SAT 95
[2017-07-15 09:23] VITALS: BP 112/75; PULSE 74; TEMP 36.8; O2SAT 95
[2017-07-15 12:02] VITALS: BP 128/84; PULSE 80; TEMP 36.4; O2SAT 98
--- NOTE | 2017-07-29 20:25 | DISCHARGE SUMMARY ---
HISTORY OF PRESENT ILLNESS: This is a 61-year-old female patient of Dr. Shrestha's complaining of chronic left knee pain, longstanding, progressively getting worse. The patient failed conservative treatment and has elected to proceed with a left total knee arthroplasty. PAST MEDICAL HISTORY: Hypertension, hypercholesterolemia, osteoarthritis, spine problems, sciatica, acid reflux, obesity and kidney stones. POSTOPERATIVE COURSE: The patient was followed closely with medical consultation, DVT prophylaxis in the form of aspirin, pain control and physical therapy. The patient did have an episode of some chest discomfort mostly interpreted as GERD. EKG was unremarkable. She had no more episodes and the patient was doing fine on discharge. She was stable, otherwise did well. She was discharged to [place] senior living facility on postoperative day #3. PHYSICAL EXAMINATION: On discharge, patient's left knee incision was clean, dry and intact. ZipLock closure procedure was intact. There was no redness or drainage. She had no calf tenderness. Neurovascularly she is intact in her left lower extremity. DIAGNOSIS: Status post left total knee arthroplasty with a history of hypertension, hypercholesterolemia, osteoarthritis, spine problems, sciatica, acid reflux, obesity and kidney stones. PLAN: The patient was discharged from [facility] to a senior living facility that being [place]. She will continue her preadmission medications as well as aspirin twice daily for DVT prophylaxis as well as the addition of pain medications for pain control. She will follow up with Dr. Shrestha as scheduled as an outpatient.
== END 2017-07-15 13:31 | DRG 470 ==
LOC: C.ACU 06:06 → C.3E 07:10 → ENRESERV 12:03
PROVIDERS: ADMIT Orthopaedic Surgery Sports Medicine; ATTEND Orthopaedic Surgery Sports Medicine
PROC: 0SRD0J9 Replacement of Left Knee Joint with Synthetic Substitute, Cemented, Open Approach (ICD-10-PCS; principal; 2017-07-11 09:00)
DX: M17.12 Unilateral primary osteoarthritis, left knee (principal); I10 Essential (primary) hypertension; E78.5 Hyperlipidemia, unspecified; E66.9 Obesity, unspecified; Z87.442 Personal history of urinary calculi; K21.9 Gastro-esophageal reflux disease without esophagitis; M51.36 Other intervertebral disc degeneration, lumbar region; Z87.891 Personal history of nicotine dependence

== ENCOUNTER → 2017-08-15 | Outpatient (CLI) | payer BC ==
[~2017-08-15] MED LIST changes: +ACET-24 PO; +AMT50 PO; +ASPEC81 PO; -ETOD400T PO; -HYDR-4330 PO; -LACTATED RINGER'S 1000ML 500 ML IV ONE; +ONDA8TAB6 PO; -ROPIVACAINE 5MG/ML 30 ML 150 MG, BUPIVACAINE 0.5% MPF INJ 30 ML, EpINEphrine HCL INJ 0.... INFIL SCH; +RXC5 PO
[2017-08-15 18:12] LABS: BASO % 0.7 %; BASO ABS # 0.05 K/uL (0-0.2); COMPLETE YES; EOS % 1.6 %; HEMATOCRIT 38.8 % (37-47); IG% 0.3 %; LYMPH % 26.8 %; LYMPH ABS # 1.81 K/uL (1.2-3.4); MEAN CELL VOLUME 91.5 fL (80-100); MEAN CORPUSCULAR HGB CONC 32.7 g/dl (32-36); MEAN PLATELET VOLUME 10.6 fL (7.4-10.4); MONO % 6.7 %; NEUT % 63.9 %; PLATELET COUNT 308 K/uL (130-400); RED BLOOD COUNT 4.24 M/uL (4.2-5.4); WHITE BLOOD COUNT 6.76 K/uL (4.8-10.8)
== END | disposition home or self-care (01) ==
LOC: C.LABMFLN 10:54
PROVIDERS: ATTEND Family Medicine
DX: D64.9 Anemia, unspecified (principal)

== ENCOUNTER → 2017-10-03 | Day surgery (SDC) | payer BC ==
[2017-09-06 14:55] VITALS: Ht 169.5 cm; Wt 90.9 kg
[~2017-10-03] VITALS: Ht 169.5 cm; Wt 90.9 kg
[~2017-10-03] MED LIST changes: -ACET-24 PO; -ASPEC81 PO; +CALC-393 PO; -CALC600T37 PO; +ETOD400T PO; +GABA-113 PO; -GABA-1218 PO; +IOPAMIDOL INJ 61% 15 ML VIAL ONE; +LIDOCAINE HCL 1% MPF 5 ML VIAL ONE; -ONDA8TAB6 PO; -RXC5 PO; +SODIUM CHLORIDE 0.9% INJ 10 ML VIAL ONE
--- NOTE | 2017-10-03 14:33 | [facility] Post Operative Brief Note ---
Immediate Operative Summary Operative Date Oct 03, 2017. Pre-Operative Diagnosis Lumbar foraminal stenosis with left lower extremity lumbar radiculopathy Post-Operative Diagnosis Same Procedure(s) Performed Lumbar Epidural Steroid Injection Surgeon Dr. Nilsa Orellana Wheel Braider Surgeon(s) None Estimated Blood Loss 0 Findings Consistent with Post-Op Diagnosis Specimens NA Drains None Anesthesia Type Local Complication(s) none Disposition Disposition:
[2017-10-03 14:34] VITALS: TEMP 36.8
--- NOTE | 2017-10-03 14:34 | Discharge Instructions ---
Discharge Instructions Date of Service Oct 03, 2017. Visit Reason for Visit: Lumbar Radiculopathy Discharge Discharge Diagnosis / Problem: Left leg pain Discharge Goals Goal(s): Decrease discomfort, Improve function Activity Recommendations Activity Limitations: resume your previous activity Anesthesia . Post Anesthesia Instructions: If you have had General Anesthesia or IV Sedation: * Do not drive today. * Resume driving when surgeon permits. * Do not make important decisions or sign legal documents today. * Call surgeon for: 1. Temperature elevations greater than 101 degrees F. 2. Uncontrollable pain. 3. Excessive bleeding. 4. Persistent nausea and vomiting. 5. Medication intolerance (nausea, vomiting or rash). * For nausea and vomiting use only clear liquids such as: tea, soda, bouillon until nausea subsides, then gradually increase diet as tolerated. * If you have any concerns or questions, call your surgeon's office. If physician is unavailable and it is an emergency, call 911 or go to the nearest emergency room. . Diet Recommendations Recommended Home Diet: resume previous diet Procedures Procedures Performed: Lumbar Epidural Steroid Injection Pending Studies Studies pending at discharge: no Medical Emergencies . Who to Call and When: Medical Emergencies: If at any time you feel your situation is an emergency, please call 911 immediately. . Non-Emergent Contact Non-Emergency issues call your: Specialist . . "Provider Documentation" section prepared by Avery Orellana. .
[2017-10-03 14:57] VITALS: BP 132/85; PULSE 82; O2SAT 98
--- NOTE | 2017-10-03 16:02 | OPERATIVE REPORT ---
DATE OF OPERATION: 10/03/2017 PREOPERATIVE DIAGNOSIS: Lumbar foraminal stenosis with left lower extremity radiculopathy. POSTOPERATIVE DIAGNOSIS: Same. PROCEDURE: Left paramedian L5-S1 intralaminar epidural steroid injection under fluoroscopic guidance. INDICATIONS: The patient is a 62-year-old white female who has done well with an epidural in the past; however, the pain has been returning and problematic to her and she presents today for an epidural injection to try to stack the effects to further eliminate radiating pain. PHYSICAL EXAMINATION: Pleasant female seated comfortably. She has normal lower extremity strength. No focal weakness. Intact sensation. CONSENT: Verbal and written consent was obtained from the patient. Risks and benefits were reviewed. Risks include but are not limited to epidural abscess, epidural hematoma, allergic reaction, dural puncture. The patient wishes to proceed. DESCRIPTION OF PROCEDURE: The patient was taken back to the special procedures room at [facility] where she was maintained in a prone position. Backside was cleansed with Betadine x3 and a dry sterile dressing was applied. Fluoroscope was used to identify the L5-S1 intralaminar space. Overlying skin was anesthetized with 4 mL of lidocaine 1% with a 25 gauge 1.5-inch needle. A 4-1/4 inch Tuohy needle was then directed down towards the intralaminar space. It was advanced under lateral fluoroscopic guidance and loss of resistance was noted at a depth of 9 cm. Isovue-300 contrast 1 mL was injected in which demonstrated epidural uptake pattern. She then underwent injection after negative aspiration of 40 mg of Depo-Medrol and 4 mL of preservative free sodium chloride. Injection resulted in a transient familiar reproduction of radicular pain down the left leg which was transient. DISPOSITION: 1. The patient is taken out into the discharge recovery area where she will be discharged home once discharge criteria have been met. 2. Follow up in the [facility] office in 4 weeks' time. I attest to the content of the Intraoperative Record and any orders documented therein. Any exception s are noted below.
== END | disposition home or self-care (01) ==
LOC: X.SURG 13:28
PROVIDERS: ATTEND Physical Medicine & Rehabilitation
DX: M48.061 Spinal stenosis, lumbar region without neurogenic claudication (principal); M54.16 Radiculopathy, lumbar region

== ENCOUNTER → 2017-11-19 | Outpatient (CLI) | payer BC ==
[~2017-11-19] MED LIST changes: +ALBU18002 INH; -BIOT1CAP PO; -GABA-113 PO; +HYDR-5688 PO; -IOPAMIDOL INJ 61% 15 ML VIAL ONE; -LIDOCAINE HCL 1% MPF 5 ML VIAL ONE; +NRN600 PO; -SODIUM CHLORIDE 0.9% INJ 10 ML VIAL ONE
[2017-11-19 16:46] LABS: BASO % 0.9 %; BASO ABS # 0.07 K/uL (0-0.2); EOS % 1.8 %; EOS ABS # 0.14 K/uL (0-0.5); HEMATOCRIT 38.6 % (37-47); HEMOGLOBIN 12.8 g/dL (12.0-16.0); IG# 0.01 K/uL (0.00-0.02); LYMPH % 28.1 %; MEAN CELL VOLUME 87.5 fL (80-100); MEAN CORPUSCULAR HGB CONC 33.2 g/dl (32-36); MEAN PLATELET VOLUME 9.6 fL (7.4-10.4); MONO % 5.9 %; MONO ABS # 0.46 K/uL (0.11-0.59); NEUT % 63.2 %; NEUT ABS # 4.96 K/uL (1.4-6.5); PLATELET COUNT 286 K/uL (130-400); RED CELL DISTRIBUTION WIDTH CV 13.5 % (11.5-14.5); RED CELL DISTRIBUTION WIDTH SD 43.2 fL (36.4-46.3); WHITE BLOOD COUNT 7.84 K/uL (4.8-10.8)
[2017-11-19 16:54] LABS: PTT PATIENT 24.9 SECONDS (21.0-31.0)
--- NOTE | 2017-11-19 17:12 | DIAGNOSTIC IMAGING REPORT ---
CHEST 2 VIEWS ROUTINE CLINICAL HISTORY: Preoperative chest. Cough. COMPARISON STUDY: No previous studies for comparison. FINDINGS: The cardiac and mediastinal contours are normal. There is no evidence of focal pulmonary consolidation. There is no evidence of failure. No pleural effusions are visualized.[ IMPRESSION: No active disease in the chest. Electronically signed by: Arjun Melgar M.D. 11/19/2017 5:11 PM Dictated Date/Time: 11/19/2017 5:11 PM
[2017-11-19 17:19] LABS: ALBUMIN 3.5 gm/dl (3.4-5.0); BLOOD UREA NITROGEN 13 mg/dl (7-18); CALCIUM 9.1 mg/dl (8.5-10.1); CARBON DIOXIDE 24 mmol/L (21-32); CREATININE 1.05 mg/dl (0.60-1.20); GLUCOSE 106 mg/dl (70-99); POTASSIUM 3.8 mmol/L (3.5-5.1); SODIUM 138 mmol/L (136-145)
== END | disposition home or self-care (01) ==
LOC: C.LAB 16:10
PROVIDERS: ATTEND Orthopaedic Surgery Sports Medicine
DX: Z01.818 Encounter for other preprocedural examination (principal)

== ENCOUNTER 2017-12-16 09:14 | Inpatient (IN) | payer BC ==
[2017-11-05 10:11] VITALS: BMI 34.0
--- NOTE | 2017-12-15 18:15 | HISTORY & PHYSICAL EXAMINATION ---
DATE OF ADMISSION: 12/16/2017 CHIEF COMPLAINT: Chronic right knee pain. HISTORY OF PRESENT ILLNESS: This is a 62-year-old female patient of Dr. Shrestha'natalie complaining of chronic right knee pain, longstanding, now progressively getting worse. The patient has failed conservative treatment including intraarticular injections, anti-inflammatories and the use of a brace. The patient has increased pain with weightbearing activities and her pain does interfere with her activities of daily living. PAST MEDICAL HISTORY: Hypertension, hypercholesterolemia, TMJ problems, spine problems, neck problems, sciatica, upper back problems, acid reflux, obesity. SOCIAL HISTORY: Half pack per day smoker, lifelong, quit in 2008. Drinker, none. PAST SURGICAL HISTORY: Left total knee, tonsillectomy, appendectomy, toe surgery, tubal ligation, ulnar nerve transposition. FAMILY HISTORY: Noncontributory. REVIEW OF SYSTEMS: Chronic right knee pain, otherwise denies any shortness of breath, chest pain, nausea, vomiting or any other joint complaints. MEDICATIONS: 1. Lisinopril 5 mg daily. 2. Dexilant 60 mg as needed every 8 weeks. 3. Glycopyrrolate 1 mg b.i.d. 4. [place] as needed. 5. Neurontin 300 mg q.i.d. 6. Metaxalone 800 mg q.i.d. 7. Biotin 10,000 mcg daily. 8. Calcium 500 daily. 9. Fish oil daily. 10. Amitriptyline 50 mg at bedtime. ALLERGIES: INCLUDE CODEINE, MELOXICAM, [place]. PHYSICAL EXAMINATION: GENERAL: Well-developed, well-nourished 62-year-old female in no acute distress. She is alert and oriented x3 and pleasant. HEENT: Normocephalic, atraumatic. Extraocular motions are intact. Pupils are equal and reactive to light. HEART: Regular rate and rhythm, no murmurs appreciated. LUNGS: Clear. ABDOMEN: Soft and nontender. Bowel sounds are present. EXTREMITIES: Right knee reveals medial joint line tenderness with a mild effusion. She has limited range of motion. She has 4/5 strength. NEUROLOGIC: Neurovascularly, she is intact in her right lower extremity. DIAGNOSES: Right knee end-stage osteoarthritis, hypertension, hypercholesterolemia, temporomandibular joint and spine problems, neck problems, upper back problems, sciatica, acid reflux, obesity. PLAN: The patient was advised of her diagnosis. Indications, risks, benefits, postop course have all been reviewed. The patient wished to proceed with a right total knee arthroplasty. Necessary consent forms, preoperative testing and clearances will be obtained.
[2017-12-16] VITALS (8 sets, daily range): BP systolic 106–130; BP diastolic 65–86; PULSE 68–73; TEMP 36.3–37.3; O2SAT 90–98; Ht 170.2 cm; Wt 100.0 kg
[~2017-12-16] VITALS: Ht 170.2 cm; Wt 100.0 kg
[2017-12-16] MEDS: TRANEXAMIC ACID INJ 1,000 MG x 2 Bags IV SCH ×4 (06:30→11:17)
[~2017-12-16 09:14] MED LIST changes: +ACETAMINOPHEN 500 MG TAB PO SCH; +BUPIVACAINE 0.25% 30 ML VIAL ONE; +BUPIVACAINE 0.5 % 5 MG/1 ML PF 10ML VIAL ONE; +CEFAZOLIN 2000MG IV PUSH 15 ML IV SCH; +CeleBREX 200 MG CAP PO SCH; +DEXAMETHASONE 4 MG TAB PO SCH; +FAMOTIDINE 20 MG TAB PO SCH; +GABAPENTIN 600 MG PO SCH; +LACTATED RINGER'S 1000ML 1,000 ML IV SCH; +LACTATED RINGER'S 1000ML 500 ML IV SCH; +METOCLOPRAMIDE HCL 10 MG TAB PO SCH; +ROPIVACAINE 5MG/ML 30 ML 150 MG, BUPIVACAINE 0.5% MPF INJ 30 ML, EpINEphrine HCL INJ 0.... INFIL SCH
[2017-12-16] MEDS ORDERED: PROPOFOL IV EMULSION 10 MG/ML 20 ML VIAL IV ONE (10:06)
[2017-12-16] MEDS ORDERED: MIDAZOLAM HCL 1 MG/ML 2ML VIAL ONE ×2 (10:06→11:32)
[2017-12-16] MEDS ORDERED: FENTANYL CITRATE INJ 50 MCG/1 ML 2 ML VIAL ONE (10:06)
[2017-12-16] MEDS ORDERED: FENTANYL CITRATE INJ 50 MCG/1 ML 2 ML VIAL IV PRN (11:00)
[2017-12-16] MEDS ORDERED: ONDANSETRON INJ 2 MG/ML 2 ML VIAL IV PRN ×2 (11:00→13:30)
[2017-12-16] MEDS ORDERED: PHENYLEPHRINE 100MCG/ML 5ML SYR IV PRN (11:00)
[2017-12-16] MEDS ORDERED: EpHEDrine SULFATE INJ 50 MG/ML AMP IV PRN (11:00)
[2017-12-16] MEDS ORDERED: PROMETHAZINE HCL INJ 12.5 MG in SODIUM CHLORIDE 0.9% 50ML 50 ML IV PRN (11:00)
[2017-12-16] MEDS ORDERED: ATROPINE SULFATE 0.1 MG/ML 5ML SYR IV PRN (11:00)
[2017-12-16] MEDS ORDERED: HYDROmorphone INJ 1 MG/ML SYR IV PRN (11:00)
[2017-12-16] MEDS ORDERED: ORTHO JOINT ANESTHETIC ONE (11:12)
[2017-12-16] MEDS ORDERED: BACITRACIN 50000 UNIT VIAL ONE (11:13)
[2017-12-16] MEDS ORDERED: POVIDONE-IODINE OP SOLN 30 ML BTL ONE (11:13)
[2017-12-16] MEDS ORDERED: DEXAMETHASONE SOD INJ 4 MG/ML VIAL ONE (11:48)
[2017-12-16] MEDS ORDERED: ONDANSETRON INJ 2 MG/ML 2 ML VIAL ONE (11:48)
--- NOTE | 2017-12-16 12:58 | [facility] Post Operative Brief Note ---
Immediate Operative Summary Operative Date Dec 16, 2017. Pre-Operative Diagnosis End Stage Osteoarthritis Right Knee Post-Operative Diagnosis End Stage Osteoarthritis Right Knee Procedure(s) Performed Right Total Knee Arthroplasty Cemented Surgeon Dr Shrestha Hide Spreader Surgeon(s) Reyes SOLORIO_Genaro Estimated Blood Loss 5cc Findings Consistent with Post-Op Diagnosis Specimens As Per Surgeon A. Right Knee Bone and Tissue Anesthesia Type MAC Spinal Regional Complication(s) none Disposition Disposition: Recovery Room / PACU
[2017-12-16] MEDS ORDERED: BISACODYL 10 MG SUPP PR PRN (13:30)
[2017-12-16] MEDS ORDERED: ALBUTEROL HFA 8 GM INHALER INH PRN (13:30)
[2017-12-16] MEDS ORDERED: MAGNESIUM HYDROXIDE SUSP 30 ML UDC PO PRN (13:30)
[2017-12-16] MEDS ORDERED: MoRPHine SULFATE 2 MG/ML CARP IV PRN (13:30)
[2017-12-16] MEDS ORDERED: ALUMINUM/MAGNESIUM/SIMETH (MAALOX MAX) 30 ML UDC PO PRN (13:30)
--- NOTE | 2017-12-16 14:05 | DIAGNOSTIC IMAGING REPORT ---
R KNEE 1 OR 2 VIEWS ROUTINE CLINICAL HISTORY: AP/LATERAL IN PACU RIGHT KNEE postoperative evaluation COMPARISON: None. DISCUSSION: Anatomic alignment posttotal right knee arthroplasty. Good contact between prosthetic and underlying bone. Expected soft tissue postoperative change. IMPRESSION: Anatomic alignment posttotal right knee arthroplasty. The above report was generated using voice recognition software. It may contain grammatical, syntax or spelling errors. Electronically signed by: Azam Alonso M.D. 12/16/2017 2:03 PM Dictated Date/Time: 12/16/2017 2:03 PM
--- NOTE | 2017-12-16 14:28 | Anesthesiology Progress Note ---
Anesthesia Post Op Note Date & Time Dec 16, 2017 at 14:28 Vital Signs Pain Intensity: 0 Vital Signs Past 12 Hours Date Time Temp Pulse Resp B/P (MAP) Pulse Ox O2 Delivery O2 Flow Rate FiO2 12/16/17 14:15 68 16 107/65 97 Nasal Cannula 3 12/16/17 14:05 66 16 106/64 96 Nasal Cannula 3 12/16/17 13:55 69 16 101/62 97 Nasal Cannula 3 12/16/17 13:45 73 18 99/62 99 Oxymask 3 12/16/17 13:35 72 18 98/56 96 Oxymask 5 12/16/17 13:27 36.1 76 16 89/56 95 Oxymask 5 12/16/17 09:42 37.0 73 16 128/86 95 Room Air Notes Mental Status: alert / awake / arousable, participated in evaluation Pt Amnestic to Procedure: Yes Nausea / Vomiting: adequately controlled Pain: adequately controlled Airway Patency, RR, SpO2: stable & adequate BP & HR: stable & adequate Hydration State: stable & adequate Neuraxial Anesthesia: was administered, sensory block is resolving Anesthetic Complications: no major complications apparent
[2017-12-16] MEDS: GABAPENTIN 600 MG TAB PO SCH ×2 (16:02→21:05)
--- NOTE | 2017-12-16 17:13 | [facility] Operative Report ---
Operative Report Operative Date Dec 16, 2017. Pre-Operative Diagnosis End Stage Osteoarthritis Right Knee Post-Operative Diagnosis Same Procedure(s) Performed Right total knee arthroplasty Surgeon Dr Shrestha Librarian Surgeon(s) Reyes JEONG Estimated Blood Loss 5cc Findings Grade 4 medial compartment and patellofemoral DJD, varus knee Specimens As Per Surgeon A. Right Knee Bone and Tissue Drains 2 Hemovac Anesthesia Spinal sedation regional block and orthomix Complication(s) None Disposition Recovery Room / PACU Indications 62 female who has progressive osteoarthritis of right knee. She has successful left knee replacement doing well with that procedure. Want to proceed with right knee replacement. Description of Procedure The patient was taken to the operating room and anesthetized under spinal sedation regional block. Patient was placed supine on the the operating table. A pneumatic tourniquet was placed about the right upper thigh. The knee exam demonstrated she had [id number] crepitation in the patellofemoral joint had stable ligaments has moderate obesity no collateral instability range of motion 0-125. The involved leg was elevated exsanguinated with Esmarch bandage and the pneumatic tourniquet was raised to 350 millimeters mercury. A longitudinal incision was made across the anterior knee. Skin flaps were elevated. An incision was made into the medial retinaculum and extended up into the mid third of the quadriceps tendon and extended down to the tibial tubercle. Intra- articular findings demonstrated to grade 4 DJD medial compartment grade 4 DJD undersurface of the patella. The knee was exposed by excising cruciate ligaments and menisci. The infrapatellar fat pad was resected. The fat pad over the anterior femur at the upper aspect of the articular surface was resected for placement of the component in that area. A subperiosteal peel lateral release was performed around the patella The [employer] 2.0 total knee arthroplasty system was utilized for the procedure. The custom femoral cutting guide was pinned in position. The distal femoral cut was made. The size 4, 5 in 1 cutting block was placed. The anterior posterior and chamfer cuts were made. The knee was extended and a free hand cut technique was performed to the patella. The patella with was measured and the width was reproduced using a 35 patella component. 3 drill holes are made for the patella component pegs. The tibia was then subluxed. The custom tibial cutting block was pinned in position and the proximal tibial cut was made with the oscillating saw. The size 4 tibial trial was externally rotated in line with the tibial tubercle and pinned in position. The punch for the stem was used. The femoral trial was inserted and centered the notch cutting devices were used and the collet was placed. Tibial trials were used for the insert. The size 12 high flex trial gave balanced ligaments through full range of motion. Patella tracking was assessed with range of motion. The patella tracked centrally. The trials were removed. The Orthomix anesthetic cocktail was injected per protocol. The cut bone surfaces and soft tissue were copiously irrigated with antibiotic solution with bacitracin. The final components were cemented with Simplex cement. The final components were for right Oxinium posterior stabilized [employer] journey 2.0 femoral component for tibial baseplate 12 mm high flex posterior stabilized poly-insert and 35 mm dome patella. While the cement cured the Betadine soak was used per protocol. When the cement cured the knee was copiously irrigated with pulsatile lavage antibiotic solution with bacitracin. 2 drains were brought out laterally connected to Hemovac. The quadriceps tendon and medial retinaculum were closed with interrupted [id number] #1 Vicryl sutures. The knee was taken through full range of motion and repair was secure. The subcutaneous tissues were closed with 2-0 Vicryl sutures. The skin was closed with zip line device. A sterile dressing was applied. The tourniquet was let down and the patient had good capillary refill to the extremity. The patient tolerated the procedure well. My physician clinical laboratory assistant Reyes SOLORIO assisted in the procedure including prepping draping leg positioning soft tissue retraction instrument management and assisted in the closure ,dressings application and will participate in postoperative care the patient. I attest to the content of the Intraoperative Record and any orders documented therein. Any exceptions are noted below.
[2017-12-16] MEDS: FERROUS GLUCONATE 324 MG TAB PO SCH (17:32)
--- NOTE | 2017-12-16 17:55 | Medical Consult ---
Consultation Date of Consultation: Dec 16, 2017. Attending Physician: Ronnie Shrestha M.D. Reason for Consultation: Medical management History of Present Illness 62 y/o F who was admitted earlier today s/p R TKA with Dr. Shrestha. Pt is doing well post-op. "I feel great!" She is tolerating PO without issue. Pt denies fever, SOB, chest pain, abd pain, n/v/c/d, LE swelling. Past Medical/Surgical History HTN Hyperlipidemia GERD TMJ Sciatica Family History Family history was reviewed; no changes noted. Social History Smoking Status: Former Smoker (quit 2008) Alcohol Use: none Drug Use: none Allergies Coded Allergies: Nickel (Verified Allergy, Unknown, ALLERGY TEST WAS POSITIVE, 12/16/17) Codeine (Verified Adverse Reaction, Intermediate, HALLUCINATIONS, 12/16/17) Meloxicam (Verified Adverse Reaction, Unknown, INCREASED BP, 12/16/17) Current Inpatient Medications Current Inpatient Medications Medications (Trade) Dose Ordered Sig/Aaron Route Start Time Stop Time Status Last Admin Dose Admin Amitriptyline HCl (Elavil Tab) 50 mg HS PO 12/16/17 21:00 01/15/18 20:59 Gabapentin (Neurontin Tab) 600 mg TID PO 12/16/17 16:00 01/15/18 15:59 12/16/17 16:02 600 MG Lisinopril (Zestril Tab) 5 mg QAM PO 12/17/17 09:00 01/16/18 08:59 Rosuvastatin Calcium (Crestor Tab) 5 mg QPM PO 12/16/17 21:00 01/15/18 20:59 Albuterol (Ventolin Hfa Inhaler) 2 puffs Q6H PRN INH 12/16/17 13:30 01/15/18 13:29 Pantoprazole Sodium (Protonix Tab) 40 mg QAM PO 12/17/17 09:00 01/16/18 08:59 Morphine Sulfate (MoRPHine SULFATE INJ) 2 mg Q4HWA PRN IV 12/16/17 13:30 12/30/17 13:29 Potassium Chloride/Dextrose/ Sod Cl 1,000 ml @ 100 mls/hr Q10H IV 12/16/17 15:30 12/17/17 13:28 Cefazolin Sodium 2000 mg/Syringe 15 ml @ 3.75 mls/ min Q8H IV 12/16/17 20:00 12/17/17 04:03 Acetaminophen/ Hydrocodone Bitart ([employer] 5/325 Tab) 1 TABLET FOR PAIN RATING... Q4H PRN PO 12/16/17 13:30 12/30/17 13:29 Magnesium Hydroxide (Milk Of Magnesia Susp) 30 ml Q6H PRN PO 12/16/17 13:30 01/15/18 13:29 Bisacodyl (Dulcolax Supp) 10 mg DAILY PRN [place] 12/16/17 13:30 01/15/18 13:29 Senna (Senokot Tab) 17.2 mg HS PO 12/16/17 21:00 01/15/18 20:59 Docusate Sodium (coLACE CAP) 100 mg BID PO 12/16/17 21:00 01/15/18 20:59 Al Hydrox/Mg Hydrox/Simethicone (Maalox Max Susp) 15 ml Q4H PRN PO 12/16/17 13:30 01/15/18 13:29 Multivitamins (Multivitamin Tab) 1 tab QAM PO 12/17/17 09:00 01/16/18 08:59 Ondansetron HCl (Zofran Inj) 4 mg Q6H PRN IV 12/16/17 13:30 01/15/18 13:29 Ferrous Gluconate (Ferrous Gluconate Tab) 324 mg TIDM PO 12/16/17 17:45 01/15/18 17:59 12/16/17 17:32 324 MG Tramadol HCl (Ultram Tab) 1 tablet for pain rating... Q4H PRN PO 12/16/17 13:30 01/15/18 13:29 Aspirin (Ecotrin Tab) 81 mg BID PO 12/16/17 21:00 01/15/18 20:59 Review of Systems Pertinent positives and negatives reviewed in HPI--all others negative Physical Exam Date Time Temp Pulse Resp B/P (MAP) Pulse Ox O2 Delivery O2 Flow Rate FiO2 12/16/17 16:55 36.5 72 17 130/81 (97) 94 Room Air 12/16/17 15:55 36.3 72 17 127/81 (96) 98 Nasal Cannula 2.0 12/16/17 15:25 36.4 68 16 127/78 (94) 97 Nasal Cannula 2.0 12/16/17 14:57 93 Nasal Cannula 2.0 12/16/17 14:55 92 Nasal Cannula 2.0 12/16/17 14:54 37.3 72 15 106/65 (79) 92 Nasal Cannula 2.0 12/16/17 14:45 70 16 101/58 95 Nasal Cannula 3 12/16/17 14:30 36.4 71 16 112/60 95 Nasal Cannula 3 12/16/17 14:15 68 16 107/65 97 Nasal Cannula 3 12/16/17 14:05 66 16 106/64 96 Nasal Cannula 3 12/16/17 13:55 69 16 101/62 97 Nasal Cannula 3 12/16/17 13:45 73 18 99/62 99 Oxymask 3 12/16/17 13:35 72 18 98/56 96 Oxymask 5 12/16/17 13:27 36.1 76 16 89/56 95 Oxymask 5 12/16/17 09:42 37.0 73 16 128/86 95 Room Air General Appearance: WD/WN, no apparent distress Head: normocephalic, atraumatic Eyes: normal inspection, sclerae normal Respiratory/Chest: normal breath sounds, no respiratory distress Cardiovascular: regular rate, rhythm, no edema Abdomen/GI: non tender, soft Extremities/Musculoskelatal: no calf tenderness, no pedal edema Neurologic/Psych: alert, normal mood/affect, oriented x 3 Skin: normal color, warm/dry Laboratory Results Last 24 Hours Test 12/16/17 09:52 Hepatitis C Antibody Screen NEG Assessment & Plan 62 y/o F who was admitted on 12/16 s/p R TKA with Dr. Shrestha. Pt is doing well post-op. "I feel great!" She is tolerating PO without issue. Pt denies fever , SOB, chest pain, abd pain, n/v/c/d, LE swelling. R knee pain: s/p TKA DVT proph and diet as per ortho HTN: stable. continue home meds Pre-op Hb 12.8
[2017-12-16] MEDS: D5W AND 1/2NSS + 20MEQ KCL 1,000 ML IV SCH (19:30)
[2017-12-16] MEDS: CEFAZOLIN IV 2,000 MG in SYRINGE 0 ML IV SCH (19:30)
[2017-12-16] MEDS: HYDROCODONE/ACETAMIN 5/325MG TAB PO PRN (19:43)
[2017-12-16] MEDS: ROSUVASTATIN CALCIUM 5 MG TAB PO SCH (21:04)
[2017-12-16] MEDS: AMITRIPTYLINE HCL 50 MG TAB PO SCH (21:04)
[2017-12-16] MEDS: DOCUSATE SODIUM 100 MG CAP PO SCH (21:04)
[2017-12-16] MEDS: ASPIRIN 81 MG ECTAB PO SCH (21:05)
[2017-12-16] MEDS: SENNA 8.6 MG TAB PO SCH (21:05)
[2017-12-17] MEDS: D5W AND 1/2NSS + 20MEQ KCL 1,000 ML IV SCH ×2 (02:55→11:30)
[2017-12-17] MEDS: HYDROCODONE/ACETAMIN 5/325MG TAB PO PRN ×5 (02:58→21:18)
[2017-12-17 02:59] VITALS: BP 111/71; PULSE 76; TEMP 36.5; O2SAT 94
[2017-12-17] MEDS: CEFAZOLIN IV 2,000 MG in SYRINGE 0 ML IV SCH (04:30)
[2017-12-17 06:29] LABS: HEMATOCRIT 32.3 % (37-47); HEMOGLOBIN 10.2 g/dL (12.0-16.0); MEAN CELL VOLUME 88.5 fL (80-100); MEAN CORPUSCULAR HEMOGLOBIN 27.9 pg (25-34); MEAN CORPUSCULAR HGB CONC 31.6 g/dl (32-36); PLATELET COUNT 291 K/uL (130-400); RED CELL DISTRIBUTION WIDTH CV 13.1 % (11.5-14.5); RED CELL DISTRIBUTION WIDTH SD 43.2 fL (36.4-46.3); WHITE BLOOD COUNT 10.81 K/uL (4.8-10.8)
[2017-12-17 07:01] LABS: CALCIUM 8.7 mg/dl (8.5-10.1); CREATININE 1.02 mg/dl (0.60-1.20); POTASSIUM 4.3 mmol/L (3.5-5.1)
--- NOTE | 2017-12-17 07:45 | Anesthesiology Progress Note ---
Anesthesia Post Op Note Date & Time Dec 17, 2017 at 07:44 Vital Signs Vital Signs Past 12 Hours Date Time Temp Pulse Resp B/P (MAP) Pulse Ox O2 Delivery O2 Flow Rate FiO2 12/17/17 02:59 36.5 76 18 111/71 (84) 94 Room Air 12/16/17 23:20 Room Air 12/16/17 23:16 36.7 70 18 117/70 (86) 96 Room Air Notes Mental Status: alert / awake / arousable, participated in evaluation Pt Amnestic to Procedure: Yes Nausea / Vomiting: adequately controlled Pain: adequately controlled Airway Patency, RR, SpO2: stable & adequate BP & HR: stable & adequate Hydration State: stable & adequate Neuraxial Anesthesia: sensory block resolved Anesthetic Complications: no major complications apparent
[2017-12-17 08:15] VITALS: BP_SYST 144; BP_SYST 145; BP_DIAS 80; PULSE 69; TEMP 36.6; O2SAT 96
[2017-12-17] MEDS: FERROUS GLUCONATE 324 MG TAB PO SCH ×3 (08:39→17:54)
[2017-12-17] MEDS: MULTIVITAMIN TAB PO SCH (08:39)
[2017-12-17] MEDS: GABAPENTIN 600 MG TAB PO SCH ×3 (08:40→21:15)
[2017-12-17] MEDS: ASPIRIN 81 MG ECTAB PO SCH ×2 (08:40→21:16)
[2017-12-17] MEDS: PANTOprazole SOD 40 MG TAB PO SCH (08:40)
[2017-12-17] MEDS: DOCUSATE SODIUM 100 MG CAP PO SCH ×2 (08:40→21:15)
[2017-12-17] MEDS: LISINOPRIL 5 MG TAB PO SCH (08:40)
--- NOTE | 2017-12-17 08:46 | Orthopedic Progress Note ---
Orthopedic Progress Note Date of Service Dec 17, 2017. Subjective Post OP Day: 1 Reports: feeling well, pain controlled w PO medications, Denies: complaints, chest pain, SOB, nausea / vomiting, light headedness, calf pain Objective calves soft nontender, N/V intact, capillary refill less than 2 sec., dressing C /D/I, A&O x3, toes mobile, hemovac drainage (250cc total) Date Time Temp Pulse Resp B/P (MAP) Pulse Ox O2 Delivery O2 Flow Rate FiO2 12/17/17 07:30 Room Air 12/17/17 02:59 36.5 76 18 111/71 (84) 94 Room Air 12/16/17 23:20 Room Air 12/16/17 23:16 36.7 70 18 117/70 (86) 96 Room Air 12/16/17 17:56 36.4 73 18 129/82 (98) 90 Room Air 12/16/17 16:55 36.5 72 17 130/81 (97) 94 Room Air 12/16/17 16:00 Nasal Cannula 2.0 12/16/17 15:55 36.3 72 17 127/81 (96) 98 Nasal Cannula 2.0 12/16/17 15:25 36.4 68 16 127/78 (94) 97 Nasal Cannula 2.0 12/16/17 14:57 93 Nasal Cannula 2.0 12/16/17 14:55 92 Nasal Cannula 2.0 12/16/17 14:54 37.3 72 15 106/65 (79) 92 Nasal Cannula 2.0 12/16/17 14:45 70 16 101/58 95 Nasal Cannula 3 12/16/17 14:30 36.4 71 16 112/60 95 Nasal Cannula 3 12/16/17 14:15 68 16 107/65 97 Nasal Cannula 3 12/16/17 14:05 66 16 106/64 96 Nasal Cannula 3 12/16/17 13:55 69 16 101/62 97 Nasal Cannula 3 12/16/17 13:45 73 18 99/62 99 Oxymask 3 12/16/17 13:35 72 18 98/56 96 Oxymask 5 12/16/17 13:27 36.1 76 16 89/56 95 Oxymask 5 12/16/17 09:42 37.0 73 16 128/86 95 Room Air Laboratory Results 24 Hours: Test 4/17/18 06:13 Hematocrit 32.3 % Hemoglobin 10.2 g/dL Assessment & Plan Assessment: POD #1 s/p Right total knee arthroplasty pt/ot dvt proph sabiha/scd/asa was d/c to [facility] after her left TKA, will make arrangements this time as well Discharge Planning DVT Prophylaxis: TEDs, SCDs, ASA
[2017-12-17 12:15] VITALS: BP 144/90; PULSE 74; TEMP 36.5; O2SAT 96
[2017-12-17 12:43] VITALS: BP 144/90; PULSE 74; TEMP 36.5; O2SAT 96
[2017-12-17 15:17] VITALS: BP 119/70; PULSE 69; TEMP 36.7; O2SAT 96
[2017-12-17] MEDS: AMITRIPTYLINE HCL 50 MG TAB PO SCH (21:40)
[2017-12-17] MEDS: SENNA 8.6 MG TAB PO SCH (21:40)
[2017-12-17] MEDS: ROSUVASTATIN CALCIUM 5 MG TAB PO SCH (21:40)
[2017-12-17 23:13] VITALS: BP 121/73; PULSE 73; TEMP 37; O2SAT 96
[2017-12-18] MEDS: TRAMADOL HCL 50 MG TAB PO PRN ×3 (00:47→23:42)
[2017-12-18] MEDS: HYDROCODONE/ACETAMIN 5/325MG TAB PO PRN ×4 (04:11→21:29)
--- NOTE | 2017-12-18 06:47 | Orthopedic Progress Note ---
Orthopedic Progress Note Date of Service Dec 18, 2017. Subjective Post OP Day: 2 Reports: feeling well, pain controlled w PO medications, Denies: complaints, chest pain, SOB, nausea / vomiting, light headedness, calf pain Objective calves soft nontender, N/V intact, capillary refill less than 2 sec., dressing C /D/I, incision C/D/I, A&O x3, toes mobile Zip dressing in tact Date Time Temp Pulse Resp B/P (MAP) Pulse Ox O2 Delivery O2 Flow Rate FiO2 12/18/17 02:41 Room Air 12/17/17 23:13 37.0 73 18 121/73 (89) 96 Room Air 12/17/17 16:50 Room Air 12/17/17 15:17 36.7 69 18 119/70 (86) 96 Room Air 12/17/17 12:15 36.5 74 20 144/90 (108) 96 Room Air 12/17/17 08:15 36.6 69 18 144/80 (101) 96 Room Air 12/17/17 07:30 Room Air Assessment & Plan Assessment: POD #2 s/p Right total knee arthroplasty pt/ot dvt proph sabiha/scd/asa Accepted to [place] for . Discharge Planning DVT Prophylaxis: TEDs, SCDs, ASA
[2017-12-18 07:09] VITALS: BP 109/72; PULSE 72; TEMP 36.8; O2SAT 96
[2017-12-18 07:45] VITALS: O2SAT 96
[2017-12-18] MEDS: FERROUS GLUCONATE 324 MG TAB PO SCH ×3 (08:25→17:50)
[2017-12-18] MEDS: MULTIVITAMIN TAB PO SCH (08:25)
[2017-12-18] MEDS: PANTOprazole SOD 40 MG TAB PO SCH (08:25)
[2017-12-18] MEDS: LISINOPRIL 5 MG TAB PO SCH (08:26)
[2017-12-18] MEDS: GABAPENTIN 600 MG TAB PO SCH ×3 (08:26→21:30)
[2017-12-18] MEDS: DOCUSATE SODIUM 100 MG CAP PO SCH ×2 (09:10→21:26)
[2017-12-18] MEDS: ASPIRIN 81 MG ECTAB PO SCH ×2 (09:10→21:26)
[2017-12-18 15:30] VITALS: BP 128/82; PULSE 73; TEMP 36.7; O2SAT 96
[2017-12-18 16:50] VITALS: O2SAT 96
[2017-12-18] MEDS: AMITRIPTYLINE HCL 50 MG TAB PO SCH (21:25)
[2017-12-18] MEDS: ROSUVASTATIN CALCIUM 5 MG TAB PO SCH (21:26)
[2017-12-18] MEDS: SENNA 8.6 MG TAB PO SCH (21:26)
[2017-12-18 23:22] VITALS: BP 143/85; PULSE 62; PULSE 72; TEMP 37.6; O2SAT 96
[2017-12-18] MEDS ORDERED: COUGH DROP (SUGAR FREE) LOZ 24 LOZ/1 BOX LOZ ONE (23:24)
[2017-12-18] MEDS ORDERED: COUGH DROP (SUGAR FREE) LOZ 24 LOZ/1 BOX LOZ PRN (23:45)
[2017-12-19] VITALS (10 sets, daily range): BP systolic 111–167; BP diastolic 72–106; PULSE 65–78; TEMP 37–37.6; O2SAT 95–100
[2017-12-19] MEDS: HYDROCODONE/ACETAMIN 5/325MG TAB PO PRN ×3 (07:48→15:50)
--- NOTE | 2017-12-19 08:09 | Orthopedic Progress Note ---
Orthopedic Progress Note Date of Service Dec 19, 2017. Subjective Post OP Day: 3 Reports: feeling well, light headedness, Denies: complaints, chest pain, SOB, nausea / vomiting, calf pain, pain controlled w PO medications Additional Notes: Had one vasovagal incident this AM, patient was promptly put in bed in trendelenburg and immediate relief, BP was 117 systolic. Likely due to occurring during first BM. Objective calves soft nontender, N/V intact, capillary refill less than 2 sec., incision C /D/I, A&O x3, toes mobile Zip line in tact. Date Time Temp Pulse Resp B/P (MAP) Pulse Ox O2 Delivery O2 Flow Rate FiO2 12/19/17 08:01 37.0 65 16 119/77 (91) 95 Room Air 12/19/17 07:25 37.6 78 18 127/78 (94) 97 12/19/17 00:15 Room Air 12/18/17 23:22 37.6 72 17 143/85 (104) 96 Room Air 12/18/17 16:50 96 Room Air 12/18/17 15:30 36.7 73 18 128/82 (97) 96 Room Air Assessment & Plan Assessment: POD #3 s/p Right total knee arthroplasty pt/ot dvt proph sabiha/scd/asa Accepted to [place] for [facility] as long as BP remains stable and asymptomatic. Discharge Planning DVT Prophylaxis: TEDs, SCDs, ASA
[2017-12-19] MEDS ORDERED: DEXL60CA4 PO (08:17)
[2017-12-19] MEDS ORDERED: ULT50X PO (08:17)
[2017-12-19] MEDS ORDERED: AMT50 PO (08:17)
[2017-12-19] MEDS ORDERED: META1TAB22 PO (08:17)
[2017-12-19] MEDS ORDERED: ALBU18002 INH (08:17)
[2017-12-19] MEDS ORDERED: NRN600 PO (08:17)
[2017-12-19] MEDS ORDERED: HYDR-5688 PO (08:17)
[2017-12-19] MEDS ORDERED: GLYC1TAB19 PO (08:17)
[2017-12-19] MEDS ORDERED: LISI-729 PO (08:17)
[2017-12-19] MEDS ORDERED: ASPI-320 PO (08:17)
[2017-12-19] MEDS ORDERED: ROSU5TAB PO (08:17)
[2017-12-19] MEDS ORDERED: CALC-393 PO (08:17)
--- NOTE | 2017-12-19 08:21 | Discharge Instructions ---
Discharge Instructions Date of Service Dec 19, 2017. Admission Reason for Admission: Right Degenerative Joint Disease Discharge Discharge Diagnosis / Problem: Right TKA Discharge Goals Goal(s): Improve function Activity Recommendations Activity Level: Assistance Required . Additional Information Patient informed of condition: Yes Advance Directives: Yes DNR: No Level of Care: Skilled Communicable Disease: No Prognosis: Improving Freeman Catheter: No Instructions / Follow-Up Instructions / Follow-Up ACTIVITY RECOMMENDATIONS: SELF CARE INSTRUCTIONS AFTER TOTAL KNEE REPLACEMENT A. You may need to continue a physical therapy program after discharge from the hospital. There are several options available to you. Your doctor will assist you in selecting the best one for you. 1. An out-patient facility 2 to 3 times a week for therapy or home therapy. 2. Continue working on all exercises taught to you in the hospital. Your goals should be to increase bending of your knee to 90 degrees and beyond and to fully straighten your knee. B. You may progress at your own pace from walking with a walker or crutches to a cane; then to no assistive devices. C. Make walking a part of your daily routine. Be up as much as comfortable with rest periods throughout the day. Rest with leg elevation is very important. Use the ice wrap frequently for the first 3-4 weeks. D. There are no restrictions on activities. You may ride in a car, shop, participate in printed circuit board panels trimmer and all social activities. E. Wear the long elastic stockings (THEO hose) 20 hours a day for 2 weeks after surgery. They can be removed several times a day for laundering and for a bath. F. You may shower, no tub baths until cleared by your doctor. SPECIAL CARE INSTRUCTIONS: VERY IMPORTANT TO READ AND REVIEW A. There are a few signs you need to watch for after you are home. Call [facility] if you notice any of the followin. Increased severe knee pain. Some pain is expected especially when you exercise. 2. Increased swelling in your leg or knee; pain or swelling of the calf muscle in either lower leg. 3. Any fluid drainage from the incision. 4. Shortness of breath or chest pain. B. Please call [facility] at if you have any concerns or questions about your operation or recovery. The doctor or his nurse will return your call promptly. C. You must take antibiotics before dental work, bladder, bowel or other surgery. Your doctor will provide you with a permanent care to carry describing this precaution. IMPORTANT: * REMEMBER TO TAKE ASPIRIN, 81 MG, TWICE DAILY FOR 4 WEEKS UNLESS OTHERWISE DIRECTED. THIS IS YOUR BLOOD THINNER. * HIGH RISK PATIENTS MAY BE PRESCRIBED A STRONGER BLOOD THINNER. THIS WILL BE PROVIDED AT DISCHARGE. * CALL IF INCREASED PAIN, REDNESS, DRAINAGE OR FEVER GREATER THAT 101. * WEAR THEO HOSE 20 HOURS PER DAY FOR 2 WEEKS. * YOU MAY HAVE A LARGE BAND-AID LIKE DRESSING (SILVERON). THIS WILL REMAIN ON YOUR INCISION FOR 7 DAYS, THEN CAN BE REMOVED. IF INCISION IS LEAKING THROUGH DRESSING, CALL THE OFFICE . FOLLOW UP VISIT: If appointment is not already scheduled: Please call [facility] to make a follow-up appointment for 2 weeks after your surgery at . You have a zip dressing over your incision, please leave in tact until follow up in office. Current Hospital Diet Patient's current hospital diet: Regular Diet Discharge Diet Recommended Diet: Regular Diet Procedures Procedures Performed: Right Total Knee Arthroplasty Cemented Pending Studies Studies pending at discharge: no Laboratory Results Hemoglobin A1c Test 11/19/17 16:16 Range/Units Estimated Average Glucose 126 mg/dl Hemoglobin A1c 6.0 H 4.5-5.6 % Medical Emergencies . Who to Call and When: Medical Emergencies: If at any time you feel your situation is an emergency, please call 911 immediately. . Non-Emergent Contact Non-Emergency issues call your: Primary Care Provider . . "Provider Documentation" section prepared by Azam Barcenas. . Core Measure Problem Core Measures: VTE VTE Core Measures Date of VTE Diagnosis: Dec 19, 2017 Time of VTE Diagnosis: 08:21 Reason no anticoag overlap I/P: Treatment provided - N/A Reason no anticoag overlap @DC: Treatment provided - N/A [place] Drug Monitoring Program Search Results: patient reviewed within database, no issues identified
[2017-12-19] MEDS: FERROUS GLUCONATE 324 MG TAB PO SCH ×2 (08:30→12:30)
[2017-12-19] MEDS: LISINOPRIL 5 MG TAB PO SCH (09:00)
[2017-12-19] MEDS: DOCUSATE SODIUM 100 MG CAP PO SCH (09:00)
[2017-12-19] MEDS: MULTIVITAMIN TAB PO SCH (09:00)
[2017-12-19] MEDS: ASPIRIN 81 MG ECTAB PO SCH (09:28)
[2017-12-19] MEDS: GABAPENTIN 600 MG TAB PO SCH ×2 (09:28→14:05)
[2017-12-19] MEDS: PANTOprazole SOD 40 MG TAB PO SCH (09:29)
[2017-12-19 10:50] LABS: BASO % 0.4 %; BASO ABS # 0.04 K/uL (0-0.2); EOS % 1.3 %; EOS ABS # 0.12 K/uL (0-0.5); HEMATOCRIT 35.2 % (37-47); HEMOGLOBIN 11.5 g/dL (12.0-16.0); IG# 0.02 K/uL (0.00-0.02); LYMPH % 18.6 %; LYMPH ABS # 1.73 K/uL (1.2-3.4); MEAN CELL VOLUME 89.3 fL (80-100); MEAN CORPUSCULAR HEMOGLOBIN 29.2 pg (25-34); MEAN CORPUSCULAR HGB CONC 32.7 g/dl (32-36); MEAN PLATELET VOLUME 9.9 fL (7.4-10.4); MONO % 6.7 %; MONO ABS # 0.62 K/uL (0.11-0.59); NEUT % 72.8 %; NEUT ABS # 6.78 K/uL (1.4-6.5); PLATELET COUNT 290 K/uL (130-400); RED CELL DISTRIBUTION WIDTH CV 13.4 % (11.5-14.5); RED CELL DISTRIBUTION WIDTH SD 44.3 fL (36.4-46.3); WHITE BLOOD COUNT 9.31 K/uL (4.8-10.8)
[2017-12-19 11:25] LABS: CALCIUM 8.8 mg/dl (8.5-10.1); CREATININE 0.97 mg/dl (0.60-1.20); POTASSIUM 3.5 mmol/L (3.5-5.1)
--- NOTE | 2017-12-19 13:52 | Progress Note ---
Subjective Date of Service: Dec 19, 2017. Subjective Pt evaluation today including: conversation w/ patient, physical exam, lab review, review of inpatient medication list Pain: moderate left knee pain PO Intake: adequate Voiding: no voiding problems called to re-evaluate patient after having a near syncopal episode this morning she had not moved her bowels in 4 days was straining a lot this morning on the toilet and after she moved her bowels she felt weak BP was low normal and RN put her back in bed and laid flat she then described a sharp right sided headache that was worse with head movement she felt light headed and nauseated and dizzy symptoms gradually resolved over the course of the morning no vision changes denied chest pain or pressure, no shortness of breath reviewed labs from this morning, Hb 11.5, WBC normal Cr normal, electrolytes normal repeat vitals stable Review of Systems Constitutional: + weakness Abdomen: + constipation (resolved this morning) Musculoskeletal: + joint pain (left knee) All Other Systems: Reviewed and Negative Medications Current Inpatient Medications Medications (Trade) Dose Ordered Sig/Aaron Route Start Time Stop Time Status Last Admin Dose Admin Amitriptyline HCl (Elavil Tab) 50 mg HS PO 12/16/17 21:00 01/15/18 20:59 12/18/17 21:25 50 MG Gabapentin (Neurontin Tab) 600 mg TID PO 12/16/17 16:00 01/15/18 15:59 12/19/17 09:28 600 MG Lisinopril (Zestril Tab) 5 mg QAM PO 12/17/17 09:00 01/16/18 08:59 12/18/17 08:26 5 MG Rosuvastatin Calcium (Crestor Tab) 5 mg QPM PO 12/16/17 21:00 01/15/18 20:59 12/18/17 21:26 5 MG Albuterol (Ventolin Hfa Inhaler) 2 puffs Q6H PRN INH 12/16/17 13:30 01/15/18 13:29 Pantoprazole Sodium (Protonix Tab) 40 mg QAM PO 12/17/17 09:00 01/16/18 08:59 12/19/17 09:29 40 MG Morphine Sulfate (MoRPHine SULFATE INJ) 2 mg Q4HWA PRN IV 12/16/17 13:30 12/30/17 13:29 Acetaminophen/ Hydrocodone Bitart ([place] 5/325 Tab) 1 TABLET FOR PAIN RATING... Q4H PRN PO 12/16/17 13:30 12/30/17 13:29 12/19/17 09:27 2 TAB Magnesium Hydroxide (Milk Of Magnesia Susp) 30 ml Q6H PRN PO 12/16/17 13:30 01/15/18 13:29 12/18/17 17:07 30 ML Bisacodyl (Dulcolax Supp) 10 mg DAILY PRN [place] 12/16/17 13:30 01/15/18 13:29 Senna (Senokot Tab) 17.2 mg HS PO 12/16/17 21:00 01/15/18 20:59 12/18/17 21:26 17.2 MG Docusate Sodium (coLACE CAP) 100 mg BID PO 12/16/17 21:00 01/15/18 20:59 12/18/17 21:26 100 MG Al Hydrox/Mg Hydrox/Simethicone (Maalox Max Susp) 15 ml Q4H PRN PO 12/16/17 13:30 01/15/18 13:29 Multivitamins (Multivitamin Tab) 1 tab QAM PO 12/17/17 09:00 01/16/18 08:59 12/18/17 08:25 1 TAB Ondansetron HCl (Zofran Inj) 4 mg Q6H PRN IV 12/16/17 13:30 01/15/18 13:29 Ferrous Gluconate (Ferrous Gluconate Tab) 324 mg TIDM PO 12/16/17 17:45 01/15/18 17:59 12/18/17 17:50 324 MG Tramadol HCl (Ultram Tab) 1 tablet for pain rating... Q4H PRN PO 12/16/17 13:30 01/15/18 13:29 12/18/17 23:42 100 MG Aspirin (Ecotrin Tab) 81 mg BID PO 12/16/17 21:00 01/15/18 20:59 12/19/17 09:28 81 MG Menthol ([place]) 1 cameron PRN PRN CAMERON 12/18/17 23:45 01/17/18 23:44 Objective Vital Signs Date Time Temp Pulse Resp B/P (MAP) Pulse Ox O2 Delivery O2 Flow Rate FiO2 12/19/17 12:56 37.0 73 14 127/77 (94) 95 Room Air 12/19/17 11:17 111/72 (85) 12/19/17 10:07 167/106 (126) 12/19/17 09:30 141/80 (100) 12/19/17 09:21 141/84 (103) 12/19/17 08:40 68 122/79 (93) 100 Room Air 12/19/17 08:30 68 14 118/74 (89) 95 Room Air 12/19/17 08:15 Room Air 12/19/17 08:01 37.0 65 16 119/77 (91) 95 Room Air 12/19/17 07:25 37.6 78 18 127/78 (94) 97 12/19/17 00:15 Room Air 12/18/17 23:22 37.6 72 17 143/85 (104) 96 Room Air 12/18/17 16:50 96 Room Air 12/18/17 15:30 36.7 73 18 128/82 (97) 96 Room Air Physical Exam General Appearance: no apparent distress, + obese Eyes: normal inspection, EOMI, sclerae normal ENT: normal ENT inspection, hearing grossly normal, pharynx normal Neck: supple, no adenopathy, no JVD, trachea midline Respiratory/Chest: chest non-tender, lungs clear, normal breath sounds, no respiratory distress, no accessory muscle use Cardiovascular: regular rate, rhythm, no edema, no gallop, no JVD, no murmur Abdomen: normal bowel sounds, non tender, soft, no organomegaly Extremities: no pedal edema, no calf tenderness, pelvis stable, + pertinent finding (right knee swollen, tender, decreased ROM) Neurologic/Psychiatric: 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 II-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 nml as tested, no motor/sensory deficits, alert, normal mood/affect, oriented x 3 Skin: normal color, warm/dry, no rash Laboratory Results Last 24 Hours Test 12/19/17 10:29 White Blood Count 9.31 K/uL Red Blood Count 3.94 M/uL Hemoglobin 11.5 g/dL Hematocrit 35.2 % Mean Corpuscular Volume 89.3 fL Mean Corpuscular Hemoglobin 29.2 pg Mean Corpuscular Hemoglobin Concent 32.7 g/dl Platelet Count 290 K/uL Mean Platelet Volume 9.9 fL Neutrophils (%) (Auto) 72.8 % Lymphocytes (%) (Auto) 18.6 % Monocytes (%) (Auto) 6.7 % Eosinophils (%) (Auto) 1.3 % Basophils (%) (Auto) 0.4 % Neutrophils # (Auto) 6.78 K/uL Lymphocytes # (Auto) 1.73 K/uL Monocytes # (Auto) 0.62 K/uL Eosinophils # (Auto) 0.12 K/uL Basophils # (Auto) 0.04 K/uL RDW Standard Deviation 44.3 fL RDW Coefficient of Variation 13.4 % Immature Granulocyte % (Auto) 0.2 % Immature Granulocyte # (Auto) 0.02 K/uL Sodium Level 135 mmol/L Potassium Level 3.5 mmol/L Chloride Level 102 mmol/L Carbon Dioxide Level 31 mmol/L Anion Gap 2.0 mmol/L Blood Urea Nitrogen 9 mg/dl Creatinine 0.97 mg/dl Est Creatinine Clear Calc Drug Dose 71.2 ml/min Estimated GFR () 71.5 Estimated GFR (Non- 61.7 BUN/Creatinine Ratio 9.7 Random Glucose 108 mg/dl Calcium Level 8.8 mg/dl Assessment and Plan 62 y/o F who was admitted on 12/16 s/p R TKA with Dr. Shrestha. R knee pain: s/p TKA, POD #3 plan to d/c to [place] for rehab I will clear her medically for discharge Pre-syncope, headache, dizziness likely vasovagal episode, patient admitted she was straining a lot to have BM this morning symptoms were self limited, went away within an hour rest of the morning her vitals have been stable, labs were stable, Hb stable no further episodes she feels fine to go to rehab, no other work up recommended HTN: stable. continue home meds of Lisinopril 5mg daily Acute blood loss anemia: minimal, hb is 11.5
--- NOTE | 2017-12-20 23:43 | DISCHARGE SUMMARY ---
DISCHARGE DIAGNOSIS: Degenerative joint disease, right knee. SECONDARY DIAGNOSES: Hypertension, hypercholesterolemia, TMJ, history of degenerative joint disease of the spine, sciatica, gastroesophageal reflux disease, obesity. CONSULTS: Julia Candelario DO COMPLICATIONS: None. PROCEDURES: Right total knee arthroplasty performed by Dr. Shrestha on 12/16/2017. BRIEF HISTORY: As dictated in the history and physical. HOSPITAL SUMMARY: The patient was admitted on the above-noted date and had the above-noted surgery performed, which he tolerated well[facility] during the patient's stay on the first postoperative day, she was feeling well and pain was controlled. She had no complaints. Calves nontender, neurovascularly intact. Dressings clean, dry and intact. Toes are mobile. Her vital signs are stable. She is afebrile. Hemoglobin was 10.2 and she was started on physical therapy protocol and continued on DVT prophylaxis and pain management. By her second postoperative day, she was feeling well and pain was controlled. She had no complaints. Calves were soft, nontender, neurovascularly intact. Dressings clean, dry and intact. Incision was benign. Toes were mobile. Vital signs were stable and she was afebrile. By the morning of her third postoperative day, she was somewhat lightheaded that morning and had a vasovagal incident. She was placed in the bed and put into Trendelenburg and had immediate relief. BP was 117 systolic and she was otherwise asymptomatic. Calves are soft, nontender, neurovascularly intact. Incision was clean, dry and intact. Toes are mobile. Medicine service saw the patient later that day, she was continued to progress with her physical therapy and had no more lightheadedness. The patient said that she had been straining a lot that morning on the toilet moving her bowels and afterwards she felt weak. She had some headache, felt lightheaded, dizzy and nauseated. Her symptoms resolved over the course of the morning. She was seen by Dr. John Marquez later that afternoon and after seeing the patient, myself, she was progressing well with physical therapy, feeling well and having no other symptoms. It was felt that she was medically stable for discharge and she was thusly discharged home on 12/19/2017. For further review, please see chart. LAB AND X-RAY DATA: As per chart. DISCHARGE INSTRUCTIONS: The patient was discharged home in satisfactory condition on 12/19/2017. Diet: Regular. Activity: Follow TK instruction sheets and special care instructions as noted. Follow up with Dr. Shrestha in 2 weeks. DISCHARGE MEDICATIONS: Aspirin 81 mg p.o. b.i.d., [place] 5/325 1-2 tabs p.o. q. 4 p.r.n., tramadol 50-100 mg p.o. q. 4 hours p.r.n. Resume home meds as listed. Stop taking etodolac, fish oil and S[place]heimer.
== END 2017-12-19 16:44 | DRG 470 ==
LOC: C.ACU 09:14 → C.3E 13:35 → EDBEDREQ 14:10 → CANRESERV 14:24 → ENRESERV 14:24
PROVIDERS: ADMIT Orthopaedic Surgery Sports Medicine; ATTEND Orthopaedic Surgery Sports Medicine
PROC: 0SRC0J9 Replacement of Right Knee Joint with Synthetic Substitute, Cemented, Open Approach (ICD-10-PCS; principal; 2017-12-16 11:30)
DX: M17.11 Unilateral primary osteoarthritis, right knee (principal); D62 Acute posthemorrhagic anemia; M25.461 Effusion, right knee; R55 Syncope and collapse; R51 Headache; R42 Dizziness and giddiness; K59.00 Constipation, unspecified; I10 Essential (primary) hypertension; K21.9 Gastro-esophageal reflux disease without esophagitis; G62.9 Polyneuropathy, unspecified; M54.30 Sciatica, unspecified side; E66.9 Obesity, unspecified; Z68.36 Body mass index [BMI] 36.0-36.9, adult; Z96.652 Presence of left artificial knee joint; Z87.891 Personal history of nicotine dependence

== ENCOUNTER 2019-10-23 16:05 | Observation (INO) ==
[2019-10-23 16:41] LABS: Basophils # (auto) 0.07 K/uL (0-0.2); Eosinophils # (auto) 0.22 K/uL (0-0.5); Eosinophils % (auto) 3.1 %; Hematocrit (blood only) 37.7 % (37-47); Hemoglobin 12.2 g/dL (12.0-16.0); Immature Granulocytes # (auto) 0.02 K/uL (0.00-0.02); Immature Granulocytes % (auto) 0.3 %; Lymphocytes # (auto) 2.38 K/uL (1.2-3.4); Mean Corpuscular Hgb Conc 32.4 g/dL (32-36); Mean Corpuscular Volume 86.7 fL (80-100); Mean Platelet Volume 9.9 fL (7.4-10.4); Monocytes # (auto) 0.32 K/uL (0.11-0.59); Monocytes % (auto) 4.6 %; Neutrophils # (auto) 3.98 K/uL (1.4-6.5); Platelet Count 334 K/uL (130-400); RDW Coefficient of Variation 14.5 % (11.5-14.5); RDW Standard Deviation 45.9 fL (36.4-46.3); Red Blood Count 4.35 M/uL (4.2-5.4); White Blood Count 6.99 K/uL (4.8-10.8)
[2019-10-23 16:51] LABS: Partial Thromboplastin Ratio 0.9; Prothrombin Time 10.3 Seconds (9.0-12.0)
[2019-10-23 16:58] LABS: Albumin Level 3.8 gm/dl (3.4-5.0); BUN Creatinine Ratio 12.7 (10-20); Calcium 8.9 mg/dl (8.5-10.1); Creatinine Clr Calc Pharmacy 62.6 ml/min; Est GFR (African American) 59.9; Est GFR (Non-African American) 51.7; Potassium 3.7 mmol/L (3.5-5.1)
[2019-10-23 17:10] LABS: Albumin Globulin Ratio 0.9 (0.9-2); Bilirubin,Total 0.8 mg/dl (0.2-1); Globulin 4.4 gm/dl (2.5-4.0); Total Protein 8.2 gm/dl (6.4-8.2); Troponin I 0.08 ng/ml (0-0.045)
--- NOTE | 2019-10-23 17:39 | Emergency Department Note ---
History of Present Illness General Chief complaint: Abnormal Labs/Diagnostic Testing Stated complaint: ABDNORMAL LABS - REF BY DOC Time Seen by Provider: 10/23/19 17:11 Source: patient Mode of arrival: ambulatory Limitations: no limitations History of Present Illness This patient is a 64-year-old female who presents to the emergency department for evaluation of an abnormal lab value. Patient states that she had an episode of chest and jaw pain 2 weeks ago while she was away in [place] on a skiing trip. She states that she was relaxing and having a drink with friends when this occurred. She reports she developed a severe pain in her left upper chest with radiation into the jaw. She rates the discomfort a 9/10 and states that the pain took her breath away. Pain lasted for a few minutes then resolved. She reports that over the past few months, she has had about 5 other episodes of jaw pain without the chest pain. She states these have occurred at random and are not associated with any exertion. Patient denies shortness of breath, diaphoresis, nausea or vomiting. She denies any dyspnea on exertion. Patient has a past medical history of hypertension, hyperlipidemia and sciatica. She denies any cardiac history. She reports she has 1 uncle on her mother side of the family who of an UT but otherwise denies family history of heart disease. Patient was seen by her primary care provider this week and had blood work drawn and was called today and told to come here for an elevated troponin. She denies any pain or other symptoms at this time. Home Medications Home Medications Medication Instructions Recorded Confirmed Type aspirin [Aspirin Low Dose] 81 mg PO QAM 05/21/18 10/23/19 History biotin 1 tab PO DAILY PRN 05/21/18 10/23/19 History calcium carbonate [Calcium 600] 600 mg PO BID 05/21/18 10/23/19 History albuterol sulfate 90 mcg/actuation 2 puff INHALATION Q6H PRN #1 ea 03/13/19 10/23/19 Rx aerosol inhaler dexlansoprazole 60 mg 60 mg PO QAM #90 cap 03/13/19 10/23/19 Rx capsule,biphase delayed release gabapentin 600 mg tablet 600 mg PO TID #90 tab 03/13/19 10/23/19 Rx glycopyrrolate 1 mg tablet 1 mg PO TID PRN tab 03/19/19 10/23/19 History lisinopril 5 mg PO QAM 04/14/19 10/23/19 History amitriptyline 100 mg tablet 100 mg PO HS #90 tab 09/10/19 10/23/19 Rx hydrocodone 5 mg-acetaminophen 325 1 - 2 tab PO Q6H PRN #120 tab 10/04/19 10/23/19 Rx mg tablet coQ10 (ubiquinol) 100 mg PO QAM 10/23/19 10/23/19 History rosuvastatin [Crestor] 5 mg PO HS 10/23/19 10/23/19 History cyclobenzaprine 10 mg PO TID PRN #270 tab 10/24/19 10/23/19 Rx etodolac 400 mg PO BID PRN #180 tab 10/24/19 10/23/19 Rx sucralfate [Carafate] 10 ml PO BID PRN 28 Days #560 ml 10/24/19 Rx Allergies Allergy/AdvReac Type Severity Reaction Status Date / Time nickel Allergy Unknown ALLERGY Verified 10/23/19 18:31 TEST WAS POSITIVE codeine AdvReac Intermediate HALLUCINATI Verified 10/23/19 18:31 ONS meloxicam AdvReac Unknown INCREASED Verified 10/23/19 18:31 BP Past Med/Surg History Medical History Arthritis (Chronic) Chest pain (Chronic) DENIES Chronic back pain Diverticulitis of colon (Chronic) DJD (degenerative joint disease) of knee GERD (gastroesophageal reflux disease) Hyperlipidemia Hypertension Insomnia (Chronic) Lumbar degenerative disc disease Lumbar disc disease (Chronic) Near syncope (Chronic) Peripheral neuropathy BILT FEET 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) Surgical History H/O carpal tunnel repair RIGHT H/O foot surgery 1 SURGERY ON BOTH FEET---BILT BUNIONECTOMY, 3 HAMMERTOES, 2 BONE SPURS History of appendectomy History of bilateral tubal ligation History of cholecystectomy History of colonoscopy History of endoscopic sinus surgery [place] X2 History of esophagogastroduodenoscopy (EGD) History of surgery on arm RIGHT ULNAR NERVE SX History of tonsillectomy and adenoidectomy History of tooth extraction WISDOM TEETH History of total left knee replacement (TKR) History of total right knee replacement (TKR) S/P bunionectomy TOTAL OF 2--1 ON RIGHT FOOT/1 ON LEFT S/P epidural steroid injection back Family History Father Lung cancer Dementia Brother Sinus malignant neoplasm Denies family history of Ovarian cancer Prostate cancer Myocardial infarction Breast cancer Colorectal cancer Stroke Social History Preferred Language: [place] Communication Ability: Effective Visual Impairment: Partially Limited Hearing Ability: Normal Optimization Engineer 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: No Beliefs That Will Affect Care: None marital status: Single Current Living Situation: Alone current occupational status: retired Feels Safe at Home: Yes Smoking Status: Former smoker Tobacco Type: cigarettes ; Age Started Using Tobacco: 16 ; Age Quit Using Tobacco: 54 ; packs per day: 0.5 ; Second Hand Exposure: Yes (FATHER SMOKED) ; Hx Alcohol Use: Yes Alcohol type: hard liquor Alcohol Intake Frequency: Holidays/Special Occasions Alcohol Intake Frequency Comment: social Hx Substance Use: No Childhood Exposure to Second-Hand Smoke: Yes (father) caffeine: Yes (tea rarely) Dental Care, Regularly: Yes Physical Activity Frequency: Daily Physical Activity Frequency Comment: skiing/housework/walk Seatbelt Use: always Sunscreen Use: Yes Do you think of yourself as: straight/heterosexual Review of Systems A total of 10 systems reviewed and were otherwise negative Physical Exam Vital Signs Vital Signs - 24 hr 10/23/19 16:11 10/23/19 17:06 Temperature 36.8 C Temperature Source Oral Pulse Rate 88 Respiratory Rate 18 Respiratory Effort / Characteristics Non-Labored Respiratory Depth Normal Respiratory Pattern Regular Blood Pressure 165/88 H Blood Pressure Mean 113 Blood Pressure Position Sitting Pulse Oximetry 99 96 Oxygen Delivery Method Room Air Room Air Sepsis Recent Fever Within 48 Hours No Sepsis Action Taken by Nursing No Action Required VITALS: Vitals are noted on the nurse's note and reviewed by myself. Vital signs stable. GENERAL: This is a 64-year-old female, in no acute distress, well-developed well-nourished. SKIN: The skin was without rashes. HEAD: Normocephalic atraumatic. EARS: External auditory canals clear, tympanic membranes pearly roland without erythema or effusion bilaterally. EYES: Pupils equal round and reactive to light and accommodation. NOSE: Patent, turbinates without inflammation or discharge. MOUTH: Mucous membranes moist. Tonsils are not enlarged. Pharynx without erythema or exudate. NECK: Supple without nuchal rigidity. No lymphadenopathy. HEART: Regular rate and rhythm without murmurs gallops or rubs. LUNGS: Clear to auscultation bilaterally without wheezes, rales or rhonchi. No retractions or accessory muscle use. ABDOMEN: Positive bowel sounds x 4. Soft, nontender to palpation. NEURO: Patient was alert and oriented to person place and time. Course Consultations Consultation #1: Dr. York - [facility] hospitalist Administered Medications Discontinued Medications Amitriptyline HCl (Elavil) 100 mg PO HS [facility] Stop: 11/22/19 21:59 Last Admin: 10/23/19 21:50 Dose: 100 mg Documented by: [id number] Aspirin (Ecotrin Ectab) 81 mg PO QAM [facility] Stop: 11/23/19 08:59 Last Admin: 10/24/19 07:41 Dose: 81 mg Documented by: [id number] Cyclobenzaprine HCl (Flexeril) 10 mg PO TID [facility] Stop: 11/22/19 21:59 Last Admin: 10/24/19 07:41 Dose: 10 mg Documented by: [id number] Admin: 10/23/19 21:50 Dose: 10 mg Documented by: [id number] Gabapentin (Neurontin) 600 mg PO TID [facility] Stop: 11/22/19 21:59 Last Admin: 10/24/19 13:23 Dose: 600 mg Documented by: [id number] Admin: 10/24/19 07:41 Dose: 600 mg Documented by: [id number] Admin: 10/23/19 21:51 Dose: 600 mg Documented by: [id number] Lisinopril (Zestril) 5 mg PO QAM [facility] Stop: 11/23/19 08:59 Last Admin: 10/24/19 07:41 Dose: 5 mg Documented by: [id number] Multivitamins/Minerals (Caltrate Plus) 1 tab PO BID [facility] Stop: 11/22/19 21:59 Last Admin: 10/24/19 07:41 Dose: 1 tab Documented by: [id number] Admin: 10/23/19 21:51 Dose: 1 tab Documented by: [id number] Pantoprazole Sodium (Protonix) 40 mg PO QAM [facility] Stop: 11/23/19 08:59 Last Admin: 10/24/19 07:41 Dose: 40 mg Documented by: [id number] Perflutren Lipid Microsphere (Definity) 2 ml IV ONCE ONE Stop: 10/24/19 11:54 Last Admin: 10/24/19 11:53 Dose: 2 ml Documented by: [id number] Rosuvastatin Calcium (Crestor) 5 mg PO HS [facility] Stop: 11/22/19 21:23 Last Admin: 10/23/19 21:51 Dose: 5 mg Documented by: [id number] Sucralfate (Carafate Tab) 1 gm PO QID [facility] Stop: 11/23/19 12:59 Last Admin: 10/24/19 16:28 Dose: 1 gm Documented by: [id number] Admin: 10/24/19 13:23 Dose: 1 gm Documented by: [id number] Medical Decision Making Differential Diagnosis Differential diagnosis includes acute coronary syndrome, pulmonary embolism, pneumothorax, pericarditis, myocarditis, endocarditis, anxiety, musculoskeletal pain, GERD, costochondritis, pneumonia, among others. Home Medications Current Medication List: was personally reviewed by me Laboratory Data Attestation: I reviewed the patient's lab results. Result diagrams: 10/23/19 16:31 10/23/19 16:31 Lab Results 10/23/19 10/23/19 10/23/19 Range/Units 16:31 16:31 16:31 WBC 6.99 (4.8-10.8) K/uL RBC 4.35 (4.2-5.4) M/uL Hgb 12.2 (12.0-16.0) g/dL Hct 37.7 (37-47) % MCV 86.7 (80-100) fL MCH 28.0 (25-34) pg MCHC 32.4 (32-36) g/dL RDW Std Deviation 45.9 (36.4-46.3) fL RDW Coeff of Wilfred 14.5 (11.5-14.5) % Plt Count 334 (130-400) K/uL MPV 9.9 (7.4-10.4) fL Immature Gran % (Auto) 0.3 % Neut % (Auto) 57.0 % Lymph % (Auto) 34.0 % Ashley % (Auto) 4.6 % Eos % (Auto) 3.1 % Baso % (Auto) 1.0 % Immature Gran # (Auto) 0.02 (0.00-0.02) K/uL Neut # (Auto) 3.98 (1.4-6.5) K/uL Lymph # (Auto) 2.38 (1.2-3.4) K/uL Ashley # (Auto) 0.32 (0.11-0.59) K/uL Eos # (Auto) 0.22 (0-0.5) K/uL Baso # (Auto) 0.07 (0-0.2) K/uL PT 10.3 (9.0-12.0) Seconds INR 1.0 (0.9-1.1) APTT 25.0 (21.0-31.0) Seconds PTT Ratio 0.9 Sodium 139 (136-145) mmol/L Potassium 3.7 (3.5-5.1) mmol/L Chloride 108 H (98-107) mmol/L Carbon Dioxide 28 (21-32) mmol/L Anion Gap 3.0 (3-11) BUN 14 (7-18) mg/dl Creatinine 1.11 (0.6-1.2) mg/dl Est Cr Clr Drug Dosing 62.6 ml/min Est GFR ( Amer) 59.9 Est GFR (Non-Af Amer) 51.7 BUN/Creatinine Ratio 12.7 (10-20) Glucose 110 H (70-99) mg/dl Calcium 8.9 (8.5-10.1) mg/dl Phosphorus (2.5-4.9) mg/dl Magnesium (1.8-2.4) mg/dl Total Bilirubin 0.8 (0.2-1) mg/dl AST 22 (15-37) U/L ALT 26 (12-78) U/L Alkaline Phosphatase 80 (45-117) U/L Troponin I 0.080 H* (0-0.045) ng/ml Total Protein 8.2 (6.4-8.2) gm/dl Albumin 3.8 (3.4-5.0) gm/dl Globulin 4.4 H (2.5-4.0) gm/dl Albumin/Globulin Ratio 0.9 (0.9-2) TSH (0.300-4.500) uIu/ml 10/23/19 Range/Units 16:31 WBC (4.8-10.8) K/uL RBC (4.2-5.4) M/uL Hgb (12.0-16.0) g/dL Hct (37-47) % MCV (80-100) fL MCH (25-34) pg MCHC (32-36) g/dL RDW Std Deviation (36.4-46.3) fL RDW Coeff of Wilfred (11.5-14.5) % Plt Count (130-400) K/uL MPV (7.4-10.4) fL Immature Gran % (Auto) % Neut % (Auto) % Lymph % (Auto) % Ashley % (Auto) % Eos % (Auto) % Baso % (Auto) % Immature Gran # (Auto) (0.00-0.02) K/uL Neut # (Auto) (1.4-6.5) K/uL Lymph # (Auto) (1.2-3.4) K/uL Ashley # (Auto) (0.11-0.59) K/uL Eos # (Auto) (0-0.5) K/uL Baso # (Auto) (0-0.2) K/uL PT (9.0-12.0) Seconds INR (0.9-1.1) APTT (21.0-31.0) Seconds PTT Ratio Sodium (136-145) mmol/L Potassium (3.5-5.1) mmol/L Chloride (98-107) mmol/L Carbon Dioxide (21-32) mmol/L Anion Gap (3-11) BUN (7-18) mg/dl Creatinine (0.6-1.2) mg/dl Est Cr Clr Drug Dosing ml/min Est GFR ( Amer) Est GFR (Non-Af Amer) BUN/Creatinine Ratio (10-20) Glucose (70-99) mg/dl Calcium (8.5-10.1) mg/dl Phosphorus 3.3 (2.5-4.9) mg/dl Magnesium 2.0 (1.8-2.4) mg/dl Total Bilirubin (0.2-1) mg/dl AST (15-37) U/L ALT (12-78) U/L Alkaline Phosphatase (45-117) U/L Troponin I (0-0.045) ng/ml Total Protein (6.4-8.2) gm/dl Albumin (3.4-5.0) gm/dl Globulin (2.5-4.0) gm/dl Albumin/Globulin Ratio (0.9-2) TSH 1.040 (0.300-4.500) uIu/ml Imaging Data Attestation: I personally reviewed and interpreted this imaging study as follows: Radiologist's Impression: XR chest 1V portable HISTORY: Atypical chest pain COMPARISON: Chest 09/10/2018. FINDINGS: Cardiac silhouette is mildly enlarged. The lungs are clear. No pleural effusions. No pneumothorax. No evidence for pulmonary edema. IMPRESSION: Mild cardiomegaly. ECG Data Attestation: I personally reviewed and interpreted this ECG as follows: Indication: + chest pain Rate (beats per minute): 81 Rhythm: + normal sinus ECG Intervals/blocks: + Incomplete right bundle branch block ECG [place]: + Normal ECG ST segments: + Normal ST segments Change: no significant change Blood Pressure Blood Pressure Findings: Elevated blood pressure Blood Pressure Disposition: Referred to patients primary care provider MDM Narrative The patient is a 64-year-old female who presents today for evaluation of an elevated troponin. Patient was sent by her primary care provider after an outpatient troponin was elevated. This was ordered due to an episode of chest/jaw pain which occurred 2 weeks ago. Patient currently asymptomatic. Patient will require further work-up for her symptoms and given the elevated troponin the case was discussed with the [facility] hospitalist, who agreed to evaluate the patient for further care. Impression & Plan Elevated troponin Discharge Plan Visit Data *Final* Discharge Date/Time: 10/23/19 19:43 Chief Complaint: Abnormal Labs/Diagnostic Testing Stated Complaint: ABDNORMAL LABS - REF BY DOC ED Provider: [facility] ED Midlevel Provider: Karina Kevin Discharge Problem: Elevated troponin Patient Disposition: Admitted As Inpatient Condition: Good Discharge Instructions Interventions: ED Discharge Assessment Last Done: 10/23/19 19:43
--- NOTE | 2019-10-23 18:10 | History & Physical Report ---
Date of Service October 23, 2019 Assessment & Plan (1) Chest pain: Patient with episode of fairly severe chest pain approximately 2 weeks ago. Reports intermittent episodes of chest pain ongoing for the last 3 to 4 months. Pain is nonexertional. Outpatient work-up revealed elevated troponin of 0.8. EKG unchanged from prior. Patient is presently without symptoms Observation to medical floor telemetry Trend troponin every 8 hours x3 sets Check 2D echocardiogram -Pending results above may need cardiology consultation Continue aspirin 81 mg p.o. daily Continue Crestor 5 mg p.o. nightly with co-Q10 Continue lisinopril 5 mg p.o. daily Present on Admission?: Yes (2) Elevated troponin: As above, patient with elevated troponin and episode of chest pain approximately 2 weeks ago. Plan as above Present on Admission?: Yes (3) HLD (hyperlipidemia): Chronic. Stable. Continue Crestor 5 mg p.o. daily (4) HTN (hypertension): Blood pressure mildly elevated at present, 165/88 Continue lisinopril 5 mg p.o. daily Continue to monitor (5) GERD (gastroesophageal reflux disease): Chronic. Stable. Continue Dexilant 60 mg p.o. 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 Patient reports she has sciatic pain daily. Typically is not limiting Continue home medications, amitriptyline, gabapentin, Flexeril Continue [place] Hold NSAIDs for now FENHep-Lock, monitor electrolytes and replete as needed, heart healthy diet as tolerated Prophylaxislow risk for DVT. Encourage ambulation Codefull per discussion with patient Dispositionobservation to medical floor telemetry History of Present Illness Chief Complaint: elevated troponin Primary Care Provider: Lit Bettencourt DO Kristina Dodge is a pleasant 64-year-old female with history of hypertension, hyperlipidemia, GERD and peripheral neuropathy presenting at the request of her primary care physician for elevated troponin obtained during outpatient labs. Patient reports an episode of left-sided chest pain 2 weeks ago while she was in [place] [employer]. The chest pain occurred while she was sitting at rest. Left-sided, 8 out of 10 in severity with radiation to the jaw. Pain was self-limited and lasts only a few minutes. She has experienced similar pain in approximately 5 additional occasions. Pain is nonexertional, nonpleuritic, non-positional, often radiates to the left jaw. Occasionally, patient will get isolated jaw pain with no chest discomfort. She is active and independent in her ADLs and does not experience exertional symptoms. She saw her PCP on 10/20/2019 for this complaint and EKG, stress echo and troponin was ordered. The troponin came back elevated today at 0.8 therefore she was recommended to come to the emergency room. Patient presently with no complaints. Specifically, no fever/chills/chest pain/palpitations/dizziness/shortness of breath/cough/wheeze. No edema/orthopnea. She has had significant weight gain over the last 2 years of approximately 30 pounds but attributes this to poor eating habits. Allergies Allergy/AdvReac Type Severity Reaction Status Date / Time nickel Allergy Unknown ALLERGY Verified 10/23/19 18:31 TEST WAS POSITIVE codeine AdvReac Intermediate HALLUCINATI Verified 10/23/19 18:31 ONS meloxicam AdvReac Unknown INCREASED Verified 10/23/19 18:31 BP Home Medications Home Medications Medication Instructions Recorded Confirmed Type aspirin [Aspirin Low Dose] 81 mg PO QAM 05/21/18 10/23/19 History biotin 1 tab PO DAILY PRN 05/21/18 10/23/19 History calcium carbonate [Calcium 600] 600 mg PO BID 05/21/18 10/23/19 History albuterol sulfate 90 mcg/actuation 2 puff INHALATION Q6H PRN #1 ea 03/13/19 10/23/19 Rx aerosol inhaler dexlansoprazole 60 mg 60 mg PO QAM #90 cap 03/13/19 10/23/19 Rx capsule,biphase delayed release gabapentin 600 mg tablet 600 mg PO TID #90 tab 03/13/19 10/23/19 Rx glycopyrrolate 1 mg tablet 1 mg PO TID PRN tab 03/19/19 10/23/19 History lisinopril 5 mg PO QAM 04/14/19 10/23/19 History cyclobenzaprine 10 mg tablet 10 mg PO TID #270 tab 05/22/19 10/23/19 Rx etodolac 400 mg tablet 400 mg PO BID #180 tab 06/03/19 10/23/19 Rx amitriptyline 100 mg tablet 100 mg PO HS #90 tab 09/10/19 10/23/19 Rx hydrocodone 5 mg-acetaminophen 325 1 - 2 tab PO Q6H PRN #120 tab 10/04/19 10/23/19 Rx mg tablet coQ10 (ubiquinol) 100 mg PO QAM 10/23/19 10/23/19 History rosuvastatin [Crestor] 5 mg PO HS 10/23/19 10/23/19 History Past Med/Surg History Medical History Arthritis (Chronic) Chest pain (Chronic) DENIES Chronic back pain Diverticulitis of colon (Chronic) DJD (degenerative joint disease) of knee GERD (gastroesophageal reflux disease) Hyperlipidemia Hypertension Insomnia (Chronic) Lumbar degenerative disc disease Lumbar disc disease (Chronic) Near syncope (Chronic) Peripheral neuropathy BILT FEET 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) Surgical History H/O carpal tunnel repair RIGHT H/O foot surgery 1 SURGERY ON BOTH FEET---BILT BUNIONECTOMY, 3 HAMMERTOES, 2 BONE SPURS History of appendectomy History of bilateral tubal ligation History of cholecystectomy History of colonoscopy History of endoscopic sinus surgery [place] X2 History of esophagogastroduodenoscopy (EGD) History of surgery on arm RIGHT ULNAR NERVE SX History of tonsillectomy and adenoidectomy History of tooth extraction WISDOM TEETH History of total left knee replacement (TKR) History of total right knee replacement (TKR) S/P bunionectomy TOTAL OF 2--1 ON RIGHT FOOT/1 ON LEFT S/P epidural steroid injection back Social History Preferred Language: [place]an Communication Ability: Effective Visual Impairment: Partially Limited Hearing Ability: Normal 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 Beliefs That Will Affect Care: None marital status: Single Current Living Situation: Alone current occupational status: retired Feels Safe at Home: Yes Smoking Status: Former smoker Tobacco Type: cigarettes ; Age Started Using Tobacco: 16 ; Age Quit Using Tobacco: 54 ; packs per day: 0.5 ; Second Hand Exposure: Yes (FATHER SMOKED) ; Hx Alcohol Use: Yes Alcohol type: hard liquor Alcohol Intake Frequency: Holidays/Special Occasions Alcohol Intake Frequency Comment: social Hx Substance Use: No Childhood Exposure to Second-Hand Smoke: Yes (father) caffeine: Yes (tea rarely) Dental Care, Regularly: Yes Physical Activity Frequency: Daily Physical Activity Frequency Comment: skiing/housework/walk Seatbelt Use: always Sunscreen Use: Yes Do you think of yourself as: straight/heterosexual Review of Systems Review of Systems: All systems reviewed & are unremarkable except as noted in HPI & below + Sciatic pain left side Physical Exam Physical Exam: General: patient resting comfortably, NAD, non-toxic in appearance, AA&O x 4 Skin: warm, dry, intact, no rashes or lesions HEENT: NC/AT, PERRL, EOMI, anicteric sclera, conjunctiva without injection, external ear normal to inspection and nontender, nares patent, moist mucus membranes, dentition intact, no oropharyngeal lesions, neck supple, trachea midline, no LAD, no thyromegaly, no JVD Heart: +S1/S2, regular, no m/r/g Lungs: equal air entry bilaterally, no rales/rhonchi/wheezes Abd: +BS, soft, NT/ND, no masses/organomegaly/ascites Ext: warm, 2+ pulses in UE/LE bilaterally, no clubbing/cyanosis or edema Neuro: nonfocal, patient AA&O x 4, speech intact, no facial droop, moving all extremities on command with equal strength 5/5 Results & Data Vital Signs (Past 12 Hours) Vital Signs Temp Pulse Resp BP Pulse Ox 10/23/19 17:06 96 10/23/19 16:11 36.8 C 88 18 165/88 H 99 Laboratory Results Lab Results 10/23/19 10/23/19 10/23/19 Range/Units 16:31 16:31 16:31 WBC 6.99 (4.8-10.8) K/uL RBC 4.35 (4.2-5.4) M/uL Hgb 12.2 (12.0-16.0) g/dL Hct 37.7 (37-47) % MCV 86.7 (80-100) fL MCH 28.0 (25-34) pg MCHC 32.4 (32-36) g/dL RDW Std Deviation 45.9 (36.4-46.3) fL RDW Coeff of Wilfred 14.5 (11.5-14.5) % Plt Count 334 (130-400) K/uL MPV 9.9 (7.4-10.4) fL Immature Gran % (Auto) 0.3 % Neut % (Auto) 57.0 % Lymph % (Auto) 34.0 % Teller % (Auto) 4.6 % Eos % (Auto) 3.1 % Baso % (Auto) 1.0 % Immature Gran # (Auto) 0.02 (0.00-0.02) K/uL Neut # (Auto) 3.98 (1.4-6.5) K/uL Lymph # (Auto) 2.38 (1.2-3.4) K/uL Teller # (Auto) 0.32 (0.11-0.59) K/uL Eos # (Auto) 0.22 (0-0.5) K/uL Baso # (Auto) 0.07 (0-0.2) K/uL PT 10.3 (9.0-12.0) Seconds INR 1.0 (0.9-1.1) APTT 25.0 (21.0-31.0) Seconds PTT Ratio 0.9 Sodium 139 (136-145) mmol/L Potassium 3.7 (3.5-5.1) mmol/L Chloride 108 H (98-107) mmol/L Carbon Dioxide 28 (21-32) mmol/L Anion Gap 3.0 (3-11) BUN 14 (7-18) mg/dl Creatinine 1.11 (0.6-1.2) mg/dl Est Cr Clr Drug Dosing 62.6 ml/min Est GFR ( Amer) 59.9 Est GFR (Non-Af Amer) 51.7 BUN/Creatinine Ratio 12.7 (10-20) Glucose 110 H (70-99) mg/dl Calcium 8.9 (8.5-10.1) mg/dl Total Bilirubin 0.8 (0.2-1) mg/dl AST 22 (15-37) U/L ALT 26 (12-78) U/L Alkaline Phosphatase 80 (45-117) U/L Troponin I 0.080 H* (0-0.045) ng/ml Total Protein 8.2 (6.4-8.2) gm/dl Albumin 3.8 (3.4-5.0) gm/dl Globulin 4.4 H (2.5-4.0) gm/dl Albumin/Globulin Ratio 0.9 (0.9-2) Diagnostic Findings XR chest 1V portable HISTORY: Atypical chest pain COMPARISON: Chest 09/10/2018. FINDINGS: Cardiac silhouette is mildly enlarged. The lungs are clear. No pleural effusions. No pneumothorax. No evidence for pulmonary edema. IMPRESSION: Mild cardiomegaly. ACT 112: Negative or not required by law. Electronically signed by: Angel Greco M.D. 10/23/2019 6:25 PM Dictated: 10/23/191823 Transcribed: 10/23/191823 ECG Additional Comments: Study shows normal sinus rhythm at 81 bpm, normal axis, VT = 168, QRS = 92, QTc = 422 Code Status & VTE Plan Code Status Full code PG Care Time/CCT Total # of Minutes Spent Total Time Spent with Patient: Total time spent is greater than 50% in coordination of care (as documented) at patient's floor/unit and/or counseling patient: Coding Level of Care Code 50677 OBS Care - Level 3 Diagnoses Chest pain R07.9 Chest pain type: unspecified Elevated troponin R79.89 HLD (hyperlipidemia) E78.5 Hyperlipidemia type: unspecified HTN (hypertension) I10 Hypertension type: essential hypertension GERD (gastroesophageal reflux disease) K21.9 Esophagitis presence: esophagitis presence not specified Sciatica of left side associated with disorder of lumbar spine M53.86 (1) HLD (hyperlipidemia) Hyperlipidemia type: unspecified Qualified Code(s): E78.5 - Hyperlipidemia, unspecified (2) GERD (gastroesophageal reflux disease) Esophagitis presence: esophagitis presence not specified Qualified Code(s): K21.9 - Gastro-esophageal reflux disease without esophagitis (3) Chest pain Chest pain type: unspecified Qualified Code(s): R07.9 - Chest pain, unspecified (4) HTN (hypertension) Hypertension type: essential hypertension Qualified Code(s): I10 - Essential (primary) hypertension
--- NOTE | 2019-10-23 18:27 | XRay Report ---
XR chest 1V portable HISTORY: Atypical chest pain COMPARISON: Chest 09/10/2018. FINDINGS: Cardiac silhouette is mildly enlarged. The lungs are clear. No pleural effusions. No pneumo thorax. No evidence for pulmonary edema. IMPRESSION: Mild cardiomegaly. ACT 112: Negative or not required by law. Electronically signed by: Angel Greco M.D. 10/23/2019 6:25 PM
[2019-10-23] MEDS ORDERED: ACETAMINOPHEN 325 MG TAB PO PRN (21:24)
[2019-10-23] MEDS ORDERED: NON-FORMULARY MEDICATION (Biotin 1 TAB) PO PRN (21:24)
[2019-10-23] MEDS ORDERED: HYDROCODONE/ACETAMOPHEN 5/325MG TAB PO PRN (21:24)
[2019-10-23] MEDS ORDERED: ROSUVASTATIN CALCIUM 5 MG TAB PO SCH (21:24)
[2019-10-23] MEDS: CYCLOBENZAPRINE HCL 10 MG TAB PO SCH (21:50)
[2019-10-23] MEDS: GABAPENTIN 600 MG TAB PO SCH (21:51)
[2019-10-23] MEDS: CALCIUM 600MG + VIT D 400 IU TAB PO SCH (21:51)
[2019-10-23 22:00] LABS: Phosphorus 3.3 mg/dl (2.5-4.9); Thyroid Stimulating Hormone 1.04 uIu/ml (0.300-4.500)
[2019-10-23] MEDS ORDERED: AMITRIPTYLINE HCL 100 MG TAB PO SCH (22:00)
--- NOTE | 2019-10-23 23:30 | Emergency Department Note ---
Entered by Jing Eagle acting as a scribe for [facility] ED Visit Note The patient was seen and examined by myself in conjunction with the advanced care provider, Karina Andersen PA-C. I agree with the history, physical and findings as documented. Please see the note for disposition and details. The scribe's documentation has been prepared under my direction and personally reviewed by me in its entirety. I confirm that the note above accurately reflects all work, treatment, procedures, and medical decision making performed by me.
[2019-10-24] MEDS: GABAPENTIN 600 MG TAB PO SCH ×2 (07:41→13:23)
[2019-10-24] MEDS: CALCIUM 600MG + VIT D 400 IU TAB PO SCH (07:41)
[2019-10-24] MEDS: CYCLOBENZAPRINE HCL 10 MG TAB PO SCH (07:41)
[2019-10-24] MEDS ORDERED: PANTOprazole 40 MG TAB PO SCH (09:00)
[2019-10-24] MEDS ORDERED: NON-FORMULARY MEDICATION (Coq10 (Ubiquinol) 100 MG) PO SCH (09:00)
[2019-10-24] MEDS ORDERED: lisinopriL 5 MG TAB PO SCH (09:00)
[2019-10-24] MEDS ORDERED: ASPIRIN 81 MG ECTAB PO SCH (09:00)
--- NOTE | 2019-10-24 10:01 | Hospitalist Progress Note ---
Date of Service October 24, 2019 Assessment & Plan (1) Chest pain: Patient with episode of fairly severe chest pain approximately 2 weeks ago. Reports intermittent episodes of chest pain ongoing for the last 3 to 4 months. Pain is nonexertional. Outpatient work-up revealed elevated troponin of 0.8. EKG unchanged from prior. Patient is presently without symptoms Observation to medical floor telemetry Trend troponin every 8 hours x3 sets Check 2D echocardiogram -Pending results above may need cardiology consultation Continue aspirin 81 mg p.o. daily Continue Crestor 5 mg p.o. nightly with co-Q10 Continue lisinopril 5 mg p.o. daily (2) Elevated troponin: As above, patient with elevated troponin and episode of chest pain approximately 2 weeks ago. Plan as above (3) HLD (hyperlipidemia): Chronic. Stable. Continue Crestor 5 mg p.o. daily (4) HTN (hypertension): Blood pressure mildly elevated at present, 165/88 Continue lisinopril 5 mg p.o. daily Continue to monitor (5) GERD (gastroesophageal reflux disease): Chronic. Stable. Continue Dexilant 60 mg p.o. 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 Patient reports she has sciatic pain daily. Typically is not limiting Continue home medications, amitriptyline, gabapentin, Flexeril Continue [place] Hold NSAIDs for now FENHep-Lock, monitor electrolytes and replete as needed, heart healthy diet as tolerated Prophylaxislow risk for DVT. Encourage ambulation Codefull per discussion with patient Dispositionobservation to medical floor telemetry Admission and Anticipated Discharge Date Admission Date: October 23, 2019 Results & Data ([facility]) Vital Signs (Past 12 Hours) Vital Signs Temp Pulse Pulse Resp BP Pulse Ox 10/24/19 09:54 64 10/24/19 08:01 36.7 C 61 19 123/78 96 10/24/19 03:51 36.6 C 62 18 148/84 H 98 10/24/19 00:00 65 10/23/19 22:02 36.6 C 18 131/78 99 PG Care Time/CCT Total # of Minutes Spent Total Time Spent with Patient: Total time spent is greater than 50% in coordination of care (as documented) at patient's floor/unit and/or counseling patient: Coding Diagnoses Chest pain R07.9 Chest pain type: unspecified Elevated troponin R79.89 HLD (hyperlipidemia) E78.5 Hyperlipidemia type: unspecified HTN (hypertension) I10 Hypertension type: essential hypertension GERD (gastroesophageal reflux disease) K21.9 Esophagitis presence: esophagitis presence not specified Sciatica of left side associated with disorder of lumbar spine M53.86 (1) Chest pain Chest pain type: unspecified Qualified Code(s): R07.9 - Chest pain, unspecified (2) HLD (hyperlipidemia) Hyperlipidemia type: unspecified Qualified Code(s): E78.5 - Hyperlipidemia, unspecified (3) HTN (hypertension) Hypertension type: essential hypertension Qualified Code(s): I10 - Essential (primary) hypertension (4) GERD (gastroesophageal reflux disease) Esophagitis presence: esophagitis presence not specified Qualified Code(s): K21.9 - Gastro-esophageal reflux disease without esophagitis
--- NOTE | 2019-10-24 10:04 | Cardiology Consultation ---
Date of Consultation October 24, 2019 Assessment & Plan (1) Elevated troponin: The character of the patient's symptoms could be concerning for acute coronary syndrome, the brief duration of the symptoms, the absence of symptoms with exertion and the remote nature of her symptoms would suggest that they are not related to an elevation in her cardiac biomarkers. She has actually not had symptoms in 2 weeks. She appears to have had similar symptoms just over a year ago without any objective evidence of ischemia. She is otherwise an active individual appears to have a low risk of obstructive coronary disease based on her exercise ability and absence of symptoms. However, she does have several elevated troponins. The degree of elevation is exceedingly small and I would expect an ischemic event to have resulted in elevations at least 10 times greater than 1 or seen currently. Unfortunately, based on her abnormal results is difficult to exclude some form of coronary pathology. We did discuss options for evaluation to include noninvasive stress testing such as perfusion imaging or coronary angiography. She is more interested in having a definite answer for this elevated troponin as well as the opportunity to fix any potential problem that is identified. As such, she fav ors an invasive approach with a cardiac catheterization. Unfortunately, we will not perform angiography today or tomorrow except an emergent circumstances. As such, she will need to wait until Saturday in order to undergo the procedure. Since she has not had any symptoms for over 2 weeks a do not believe we need to perform any other acute intervention. We will maintain good blood pressure control. She will take a daily aspirin and continue her rosuvastatin. Present on Admission?: Yes History of Present Illness Reason for Consultation: Chest pain Requesting Physician: Jaylen Attending Physician: Omer Lawrence MD History of Present Illness The patient is a 64-year-old woman without a known history of cardiac disease who presented to her primary care physician for routine evaluation last week. It seems that the patient has been having episodes of jaw discomfort and 1 episode of jaw discomfort associated with chest pain. The episode of chest discomfort occurred approximately 2 weeks ago while she was away in [place]. Patient states that this episode occurred while she was at rest and doing some cocktails. The episode involved a fairly severe sense substernal discomfort and radiation into the jaw. She believes the episode may have lasted for 10 minutes and resolved spontaneously. It does not appear to have recurred. She had no symptoms of that nature with skiing or other exertion recently. Several weeks leading up to that event the patient had been having episodes of jaw discomfort. These also occurred at rest without any specific provocation. These lasted a few minutes and resolved. Based on the nature of the symptoms the patient underwent laboratory testing which revealed an elevated troponin. She was therefore directed to our emergency room for evaluation. The patient states she has not had symptoms of any kind for approximately 2 weeks. Curiously, the patient appeared to have had similar symptoms in August of 2018. Notes in her chart describe fairly similar description chest discomfort and jaw pain. Chest discomfort at that time appear to be right-sided in nature. It seems that a troponin was obtained at that time as well and was normal. In general, the patient is an active individual. She is able to perform moderate significant activity such as scan without symptoms of chest discomfort or limiting dyspnea. She denies symptoms of dizziness or lightheadedness. She has not had presyncope or syncope. She denies any sense of palpitations. No orthopnea or paroxysmal nocturnal dyspnea. Allergies Allergy/AdvReac Type Severity Reaction Status Date / Time nickel Allergy Unknown ALLERGY Verified 10/23/19 18:31 TEST WAS POSITIVE codeine AdvReac Intermediate HALLUCINATI Verified 10/23/19 18:31 ONS meloxicam AdvReac Unknown INCREASED Verified 10/23/19 18:31 BP Home Medications Home Medications Medication Instructions Recorded Confirmed Type aspirin [Aspirin Low Dose] 81 mg PO QAM 05/21/18 10/23/19 History biotin 1 tab PO DAILY PRN 05/21/18 10/23/19 History calcium carbonate [Calcium 600] 600 mg PO BID 05/21/18 10/23/19 History albuterol sulfate 90 mcg/actuation 2 puff INHALATION Q6H PRN #1 ea 03/13/19 10/23/19 Rx aerosol inhaler dexlansoprazole 60 mg 60 mg PO QAM #90 cap 03/13/19 10/23/19 Rx capsule,biphase delayed release gabapentin 600 mg tablet 600 mg PO TID #90 tab 03/13/19 10/23/19 Rx glycopyrrolate 1 mg tablet 1 mg PO TID PRN tab 03/19/19 10/23/19 History lisinopril 5 mg PO QAM 04/14/19 10/23/19 History cyclobenzaprine 10 mg tablet 10 mg PO TID #270 tab 05/22/19 10/23/19 Rx etodolac 400 mg tablet 400 mg PO BID #180 tab 06/03/19 10/23/19 Rx amitriptyline 100 mg tablet 100 mg PO HS #90 tab 09/10/19 10/23/19 Rx hydrocodone 5 mg-acetaminophen 325 1 - 2 tab PO Q6H PRN #120 tab 10/04/19 10/23/19 Rx mg tablet coQ10 (ubiquinol) 100 mg PO QAM 10/23/19 10/23/19 History rosuvastatin [Crestor] 5 mg PO HS 10/23/19 10/23/19 History Patient History Medical History Arthritis (Chronic) Chest pain (Chronic) DENIES Chronic back pain Diverticulitis of colon (Chronic) DJD (degenerative joint disease) of knee GERD (gastroesophageal reflux disease) Hyperlipidemia Hypertension Insomnia (Chronic) Lumbar degenerative disc disease Lumbar disc disease (Chronic) Near syncope (Chronic) Peripheral neuropathy BILT FEET 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) Surgical History H/O carpal tunnel repair RIGHT H/O foot surgery 1 SURGERY ON BOTH FEET---BILT BUNIONECTOMY, 3 HAMMERTOES, 2 BONE SPURS History of appendectomy History of bilateral tubal ligation History of cholecystectomy History of colonoscopy History of endoscopic sinus surgery [place] X2 History of esophagogastroduodenoscopy (EGD) History of surgery on arm RIGHT ULNAR NERVE SX History of tonsillectomy and adenoidectomy History of tooth extraction WISDOM TEETH History of total left knee replacement (TKR) History of total right knee replacement (TKR) S/P bunionectomy TOTAL OF 2--1 ON RIGHT FOOT/1 ON LEFT S/P epidural steroid injection back Family History Father Lung cancer Dementia Brother Sinus malignant neoplasm Denies family history of Ovarian cancer Prostate cancer Myocardial infarction Breast cancer Colorectal cancer Stroke Social History Preferred Language: Kyrgyz Communication Ability: Effective Visual Impairment: Partially Limited Hearing Ability: Normal 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 Beliefs That Will Affect Care: None marital status: Single Current Living Situation: Alone current occupational status: retired Feels Safe at Home: Yes Smoking Status: Former smoker Tobacco Type: cigarettes ; Age Started Using Tobacco: 16 ; Age Quit Using Tobacco: 54 ; packs per day: 0.5 ; Second Hand Exposure: Yes (FATHER SMOKED) ; Hx Alcohol Use: Yes Alcohol type: hard liquor Alcohol Intake Frequency: Holidays/Special Occasions Alcohol Intake Frequency Comment: social Hx Substance Use: No Childhood Exposure to Second-Hand Smoke: Yes (father) caffeine: Yes (tea rarely) Dental Care, Regularly: Yes Physical Activity Frequency: Daily Physical Activity Frequency Comment: skiing/housework/walk Seatbelt Use: always Sunscreen Use: Yes Do you think of yourself as: straight/heterosexual Review of Systems Review of Systems: All systems reviewed & are unremarkable except as noted in HPI & below Patient did have a sinus infection recently for which she was prescribed prednisone and an antibiotic. She cannot recall having fevers or chills at that time. She does state that she sweats more than most. No other recent symptoms. Physical Exam Physical Exam: She is alert and oriented x3. Mood affect appear normal. She answered all questions appropriately. HEENT: Sclerae are anicteric. Pupils are equal and reactive to light and accommodation. Extraocular movements were intact. Neuro: Cranial nerves intact Neck: Examination of the submandibular region did not reveal any significant lymphadenopathy. Carotids are palpable bilaterally and free of bruits on auscultation. There was no evidence of jugular venous distention. The thyroid was not enlarged. Lungs: Lungs are clear to auscultation bilaterally. There are no rales wheezes or rhonchi. She has normal respiratory effort without use of accessory m uscles. There is normal pulmonary excursion. Cardiac: The rhythm was regular. S1 and S2 were normal. There are no murmurs on examination. The PMI was not markedly displaced on palpation. Abdomen: The abdomen was soft and nontender. Extremities: Patient has bilateral radial pulses that are equal in intensity. There is no evidence cyanosis or clubbing. There was no evidence of significant peripheral edema bilaterally. Skin: There are no rashes noted on examination today. Results & Data ([facility]) Vital Signs (Past 12 Hours) Vital Signs Temp Pulse Pulse Resp BP Pulse Ox 10/24/19 09:54 64 10/24/19 08:01 36.7 C 61 19 123/78 96 10/24/19 03:51 36.6 C 62 18 148/84 H 98 10/24/19 00:00 65 10/23/19 22:02 36.6 C 18 131/78 99 Laboratory Results Abnormal Lab Results 10/23/19 10/23/19 10/23/19 16:31 16:31 16:31 WBC 6.99 RBC 4.35 Hgb 12.2 Hct 37.7 MCV 86.7 MCH 28.0 MCHC 32.4 RDW Std Deviation 45.9 RDW Coeff of Wilfred 14.5 Plt Count 334 MPV 9.9 Immature Gran % (Auto) 0.3 Neut % (Auto) 57.0 Lymph % (Auto) 34.0 Duval % (Auto) 4.6 Eos % (Auto) 3.1 Baso % (Auto) 1.0 Immature Gran # (Auto) 0.02 Neut # (Auto) 3.98 Lymph # (Auto) 2.38 Duval # (Auto) 0.32 Eos # (Auto) 0.22 Baso # (Auto) 0.07 PT 10.3 INR 1.0 APTT 25.0 PTT Ratio 0.9 Sodium 139 Potassium 3.7 Chloride 108 H Carbon Dioxide 28 Anion Gap 3.0 BUN 14 Creatinine 1.11 Est Cr Clr Drug Dosing 62.6 Est GFR ( Amer) 59.9 Est GFR (Non-Af Amer) 51.7 BUN/Creatinine Ratio 12.7 Glucose 110 H Calcium 8.9 Phosphorus Magnesium Total Bilirubin 0.8 AST 22 ALT 26 Alkaline Phosphatase 80 Troponin I 0.080 H* Total Protein 8.2 Albumin 3.8 Globulin 4.4 H Albumin/Globulin Ratio 0.9 TSH 10/23/19 10/23/19 16:31 22:25 WBC RBC Hgb Hct MCV MCH MCHC RDW Std Deviation RDW Coeff of Wilfred Plt Count MPV Immature Gran % (Auto) Neut % (Auto) Lymph % (Auto) Duval % (Auto) Eos % (Auto) Baso % (Auto) Immature Gran # (Auto) Neut # (Auto) Lymph # (Auto) Duval # (Auto) Eos # (Auto) Baso # (Auto) PT INR APTT PTT Ratio Sodium Potassium Chloride Carbon Dioxide Anion Gap BUN Creatinine Est Cr Clr Drug Dosing Est GFR ( Amer) Est GFR (Non-Af Amer) BUN/Creatinine Ratio Glucose Calcium Phosphorus 3.3 Magnesium 2.0 Total Bilirubin AST ALT Alkaline Phosphatase Troponin I 0.082 H* Total Protein Albumin Globulin Albumin/Globulin Ratio TSH 1.040 Diagnostic Findings Chest x-ray obtained at the time admission revealed mild cardiomegaly. ECG Additional Comments: Reviewed the source images of her EKGs. Normal sinus rhythm with nonspecific ST and T-wave changes. PG Care Time/CCT Total # of Minutes Spent Total Time Spent with Patient: Total time spent is greater than 50% in coordination of care (as documented) at patient's floor/unit and/or counseling patient: Coding Level of Care Code 93420 Initial Inpt Care Lvl 3 Diagnoses Elevated troponin R79.89
[2019-10-24] MEDS ORDERED: CYCLOBENZAPRINE HCL 10 MG TAB PO PRN (10:18)
[2019-10-24] MEDS ORDERED: PERFLUTREN LIPID MICROSPHERE (DEFINITY) IV ONE (11:53)
--- NOTE | 2019-10-24 13:06 | XCELERA ---
[id number] [id number]
[2019-10-24] MEDS: SUCRALFATE 1 GM TAB PO SCH ×2 (13:23→16:28)
--- NOTE | 2019-10-24 17:03 | Discharge Summary ---
Date of Service October 24, 2019 Admission HPI Per Admitting Provider Kristina Dodge is a pleasant 64-year-old female with history of hypertension, hyperlipidemia, GERD and peripheral neuropathy presenting at the request of her primary care physician for elevated troponin obtained during outpatient labs. Patient reports an episode of left-sided chest pain 2 weeks ago while she was in [place]. The chest pain occurred while she was sitting at rest. Left-sided, 8 out of 10 in severity with radiation to the jaw. Pain was self-limited and lasts only a few minutes. She has experienced similar pain in approximately 5 additional occasions. Pain is nonexertional, nonpleuritic, non-positional, often radiates to the left jaw. Occasionally, patient will get isolated jaw pain with no chest discomfort. She is active and independent in her ADLs and does not experience exertional symptoms. She saw her PCP on 10/20/2019 for this complaint and EKG, stress echo and troponin was ordered. The troponin came back elevated today at 0.8 therefore she was recommended to come to the emergency room. Patient presently with no complaints. Specifically, no fever/chills/chest pain/palpitations/dizziness/shortness of breath/cough/wheeze. No edema/orthopnea. She has had significant weight gain over the last 2 years of approximately 30 pounds but attributes this to poor eating habits. Admission Exam Per Admitting Provider General: patient resting comfortably, NAD, non-toxic in appearance, AA&O x 4 Skin: warm, dry, intact, no rashes or lesions HEENT: NC/AT, PERRL, EOMI, anicteric sclera, conjunctiva without injection, external ear normal to inspection and nontender, nares patent, moist mucus membranes, dentition intact, no oropharyngeal lesions, neck supple, trachea midline, no LAD, no thyromegaly, no JVD Heart: +S1/S2, regular, no m/r/g Lungs: equal air entry bilaterally, no rales/rhonchi/wheezes Abd: +BS, soft, NT/ND, no masses/organomegaly/ascites Ext: warm, 2+ pulses in UE/LE bilaterally, no clubbing/cyanosis or edema Neuro: nonfocal, patient AA&O x 4, speech intact, no facial droop, moving all extremities on command with equal strength 5/5 Principal Diagnosis Elevated stable troponin - unclear etiology Discharge Exam Constitutional well developed, well nourished and + obese; no acute distress Eyes + anicteric sclerae; normal pupil size ENMT external ear and nose normal, oropharynx normal Neck trachea midline, no thyromegaly Respiratory normal respiratory effort, lungs clear to auscultation Cardiovascular RRR, no murmur, no edema Gastrointestinal (Abdomen) normal bowel sounds, soft, nontender, no hepatosplenomegaly Musculoskeletal no cyanosis or clubbing, extremities motor strength 5/5 Skin no rashes, warm and dry Neurologic moves all extremities and awake; no focal motor deficits and not confused Motor/Sensory: no tremor Psychiatric A+Ox3, euthymic affect Discharge Data Allergies Allergy/AdvReac Type Severity Reaction Status Date / Time nickel Allergy Unknown ALLERGY Verified 10/23/19 18:31 TEST WAS POSITIVE codeine AdvReac Intermediate HALLUCINATI Verified 10/23/19 18:31 ONS meloxicam AdvReac Unknown INCREASED Verified 10/23/19 18:31 BP Consultations 10/23/19 17:46 ED Decision to Admit Stat 10/24/19 07:41 Consult Cardiology Routine Hospital Course (1) Chest pain: Augusta Dodge is a 64 year old female admitted overnight from October 23 to 2019 at [facility] due to elevated troponin level and chest pain. She has daily chest pain which appear consistent with gastroesophageal reflux, this improves with antacids and Dexilant therefore appears consistent with this diagnosis. She had an additional chest/jaw pain which was atypical for cardiac pain 2 weeks ago however this appears unlikely to be the cause of an elevated troponin this far out. Interestingly she also had a similar chest/jaw pain in August 2018 with a normal troponin at that time. She was admitted on observation status. Troponins were stable overnight. Echocardiogram unremarkable. She was reviewed by cardiology (Dr Duval) and given options of further workup and elected for discharge with elective cardiac catheterization preferably performed by Dr Loera that should be performed in the next week. For her ongoing heartburn recommend she was given Carafate with good relief which will be prescribed on an as needed basis (2) Elevated troponin: (3) HLD (hyperlipidemia): (4) HTN (hypertension): (5) GERD (gastroesophageal reflux disease): (6) Sciatica of left side associated with disorder of lumbar spine: Total Time Total Time Spent Total Time Spent (In Minutes): 55 Total Time Includes: Examination of the Patient, Discharge Planning and Medication Reconciliation Discharge Plan Discharge Items Patient Disposition: Home - Self-Care Reason For Visit: ELEVATED TROPONIN Discharge Diagnosis: Atypical chest pain Elevated stable troponin - unclear cause Gastroesophageal reflux Condition on Discharge: Good Activity: Per Instructions section 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 Troponins were stable overnight. You had an atypical chest pain episode 2 weeks prior however unclear if this is related as you have no ongoing anginal symptoms. You were reviewed by cardiology (Dr Duval) and will arrange for an outpatient cardiac catheterization. Do not do any strenuous exercise prior to this. You should be called to arrange an appointment for the cardiac catheterization. Please call the number above for Dr Loera's office if you do not hear anything by Saturday. For your ongoing heartburn recommend adding Carafate as needed to your regimen which you can use as needed. This medication helps form a viscous paste-like adhesive substance that forms a protective coating against acid and bile salts. If your pain returns recommend return to the emergency room. Kind regards, Dr Omer Lawrence Pending Studies at Discharge: No Stand-Alone Forms: My [facility] [employer], Smoking Cessation Medications and DC Order Prescriptions: New sucralfate [Carafate] 100 mg/mL suspension 10 ml PO BID PRN (Reason: heartburn) 28 Days Qty: 560 RF: 0 Continued amitriptyline 100 mg tablet 100 mg PO HS Qty: 90 RF: 0 hydrocodone-acetaminophen 5-325 mg tablet 1 - 2 tab PO Q6H PRN (Reason: Pain) Qty: 120 RF: 0 albuterol sulfate [ProAir HFA] 90 mcg/actuation HFA aerosol inhaler 2 puff INHALATION Q6H PRN (Reason: Shortness Of Breath Or Wheezing) Qty: 1 RF: 5 Dexilant 60 mg capsule,biphase delayed releas 60 mg PO QAM Qty: 90 RF: 1 gabapentin 600 mg tablet 600 mg PO TID Qty: 90 RF: 5 glycopyrrolate 1 mg tablet 1 mg PO TID PRN (Reason: Sweating) RF: 0 aspirin [Aspirin Low Dose] 81 mg Tablet,Delayed Release (Dr/Ec) 81 mg PO QAM RF: 0 calcium carbonate [Calcium 600] 600 mg calcium (1,500 mg) Tablet 600 mg PO BID RF: 0 biotin 10,000 mcg Capsule 1 tab PO DAILY PRN (Reason: HAIR LOSS) RF: 0 lisinopril 5 mg tablet 5 mg PO QAM RF: 0 coQ10 (ubiquinol) 100 mg Capsule 100 mg PO QAM RF: 0 rosuvastatin [Crestor] 5 mg tablet 5 mg PO HS RF: 0 Changed cyclobenzaprine 10 mg tablet 10 mg PO TID PRN (Reason: muscle spasms) Qty: 270 RF: 0 etodolac 400 mg tablet 400 mg PO BID PRN (Reason: arthritis pain) Qty: 180 RF: 1 Discharge Orders: Discharge Order (Routine); Ordered 10/24/19 Ordered By: Omer Lawrence Admission Data Admit Date/Time: 10/23/19 18:04 Attending Provider: Omer Lawrence Admit Provider: Zo York Primary Care Provider: Lit Bettencourt Other Providers: Omer Lawrence ; Geoffrey Duval Coding Level of Care Code 61827 OBS Care - Discharge Diagnoses Chest pain R07.9 Chest pain type: unspecified Elevated troponin R79.89 HLD (hyperlipidemia) E78.5 Hyperlipidemia type: unspecified HTN (hypertension) I10 Hypertension type: essential hypertension GERD (gastroesophageal reflux disease) K21.9 Esophagitis presence: esophagitis presence not specified Sciatica of left side associated with disorder of lumbar spine M53.86
--- NOTE | 2019-10-24 18:19 | Electrocardiogram Report ---
Test Reason : Blood Pressure : / mmHG Vent. Rate : 081 BPM Atrial Rate : 081 BPM P-R Int : 168 ms QRS Dur : 092 ms QT Int : 364 ms P-R-T Axes : 035 -06 053 degrees QTc Int : 422 ms Normal sinus rhythm Incomplete right bundle branch block Borderline ECG When compared with ECG of 12-JUL-2017 08:33, No significant change was found Confirmed by Kris Duval ([id number]) on 10/24/2019 6:19:04 PM Referred By: Lit Bettencourt Confirmed By:Yves Duval
== END 2019-10-24 18:38 | disposition home or self-care (01) ==
LOC: 2N 16:05 → ED 16:05 → SUATTDRO 18:04 → 2N 19:43